=== PATIENT | female | born 1990 | race African-American/Black ===

== ENCOUNTER 2017-03-30 10:14 | Emergency (ER) | payer OTHER ==
[2017-03-30 10:23] VITALS: TEMP 98.3
[2017-03-30] MEDS ORDERED: PANTOPRAZOLE 40 MG/10 ML VIAL IVP STA (10:41)
[2017-03-30] MEDS ORDERED: SODIUM CHLORIDE 0.9% 1,000 ML IV STA (10:41)
[2017-03-30] MEDS ORDERED: SODIUM CHLORIDE 0.9% 500 ML IV STA (10:41)
[2017-03-30] MEDS ORDERED: ONDANSETRON 4 MG/2 ML VIAL IVP STA (10:41)
[2017-03-30] MEDS ORDERED: LORazepam 2 MG/ML INJ IV STA (10:42)
--- NOTE | 2017-03-30 10:43 | ED ---
General Adult HPI - General Chief complaint: Syncope Stated complaint: Fall Time Seen by Provider: 03/30/17 10:34 Source: RN/, RN notes reviewed, old records reviewed Mode of arrival: wheelchair Limitations: altered mental status - History of Present Illness Initial comments: This is a 26-year-old female to the ER for evaluation today. Patient presents with her mother today for evaluation after a syncopal event. Patient has no medical history takes no medications. Patient states he feels very weak, lightheaded. Patient does admit to drinking last night, more than usual. No nausea vomiting. Patient states she neck keep anything down today. No recent episodes of illness no diarrhea no chest pain or shortness of breath no abdominal pain. No headaches. Patient was visiting a friend and OB and while in the room passed out. Witnessed event, no change of color. - Related Data Home Medications Medication Instructions Recorded Confirmed [id number] 2 tab PO Q4HR PRN 03/30/17 03/30/17 [Excedrin] Allergies Allergy/AdvReac Type Severity Reaction Status Date / Time No Known Allergies Allergy Verified 03/28/15 07:50 Review of Systems ROS Statement: Those systems with pertinent positive or pertinent negative responses have been documented in the HPI. ROS Other: All systems not noted in ROS Statement are negative. Past Medical History Past Medical History: No Reported History Additional Past Medical History / Comment(s): Pericarditis; Kidney Stones History of Any Multi-Drug Resistant Organisms: None Reported Past Surgical History: No Surgical Hx Reported Past Psychological History: Anxiety, Depression Smoking Status: Current every day smoker Past Alcohol Use History: Occasional Past Drug Use History: None Reported General Exam Limitations: altered mental status General appearance: alert, in no apparent distress Head exam: Present: atraumatic, normocephalic, normal inspection Eye exam: Present: normal appearance, PERRL, EOMI. Absent: scleral icterus, conjunctival injection, periorbital swelling ENT exam: Present: normal exam, mucous membranes moist Neck exam: Present: normal inspection. Absent: tenderness, meningismus, lymphadenopathy Respiratory exam: Present: normal lung sounds bilaterally. Absent: respiratory distress, wheezes, rales, rhonchi, stridor Cardiovascular Exam: Present: regular rate, normal rhythm, normal heart sounds. Absent: systolic murmur, diastolic murmur, rubs, gallop, clicks GI/Abdominal exam: Present: soft, normal bowel sounds. Absent: distended, tenderness, guarding, rebound, rigid Extremities exam: Present: normal inspection, full ROM, normal capillary refill. Absent: tenderness, pedal edema, joint swelling, calf tenderness Back exam: Present: normal inspection Neurological exam: Present: alert, oriented X3, CN II-XII intact Psychiatric exam: Present: normal affect, normal mood Skin exam: Present: warm, dry, intact, normal color. Absent: rash Course Vital Signs 03/30/17 10:20 Temperature 98.3 F Pulse Rate 92 Respiratory 18 Rate Blood Pressure 112/68 O2 Sat by Pulse 99 Oximetry - Reevaluation(s) Reevaluation #1: 03/30/17 11:07 Patient is feeling much better with IV fluid resuscitation Medical Decision Making - Medical Decision Making 26 female to the ER with vasovagal syncopal event, secondary dehydration and alcohol intoxication from the night before. Patient's labwork is normal. Patient is doing better patient can be discharged home Disposition Clinical Impression: Vasovagal syncope, Dehydration, Alcohol withdrawal Disposition: HOME SELF-CARE Condition: Good Instructions: Syncope (ED) Referrals: Karson Brown MD [Primary Care Provider] - 1-2 days
[2017-03-30 11:13] LABS: Basophils % (A) 0 %; CH 30.3; CHCM 31.7; Eosinophils # (A) 0.2 k/uL (0-0.7); Eosinophils % (A) 1 %; HCT 41.5 % (34.0-46.0); HDW 2.09; HGB 13.1 gm/dL (11.4-16.0); Luc # (Auto) 0.11; Luc % (Auto) 1; Lymphocytes # (A) 2.1 k/uL (1.0-4.8); Lymphocytes % (A) 16 %; MCH 30.2 pg (25.0-35.0); MCHC 31.5 g/dL (31.0-37.0); MCV 95.9 fL (80.0-100.0); Mean Platelet Volume 8.2; Monocytes # (A) 0.5 k/uL (0-1.0); Monocytes % (A) 4 %; Neutrophils # (A) 10.1 k/uL (1.3-7.7); Neutrophils % (A) 78 %; RBC 4.33 m/uL (3.80-5.40); RDW 13.5 % (11.5-15.5); WBC 12.9 k/uL (3.8-10.6); WBC (Perox) 13.04
[2017-03-30 11:23] LABS: ALT 92 U/L (9-52); AST 46 U/L (14-36); Alkaline Phosphatase 59 U/L (38-126); Anion Gap 16 mmol/L; Blood Urea Nitrogen 11 mg/dL (7-17); Calcium 9.6 mg/dL (8.4-10.2); Carbon Dioxide 21 mmol/L (22-30); Chloride 108 mmol/L (98-107); Glucose 93 mg/dL (74-99); Magnesium 1.7 mg/dL (1.6-2.3); Non-African American GFR(MDRD) >60 (>60 ml/min/1.73 sqM); Phosphorous 4.3 mg/dL (2.5-4.5); Potassium 4.5 mmol/L (3.5-5.1); Sodium 145 mmol/L (137-145); Total Bilirubin 0.2 mg/dL (0.2-1.3)
[2017-03-30 11:24] LABS: Alcohol 85 mg/dL
[2017-03-30 11:32] LABS: HCG,Qualitative Serum Not Detected
[2017-03-30 12:16] VITALS: BP 119/89; PULSE 93; RESP 18
== END 2017-03-30 12:27 | disposition home or self-care (01) ==
LOC: EC 10:14
DX: E86.0 Dehydration (principal); F10.239 Alcohol dependence with withdrawal, unspecified; R41.82 Altered mental status, unspecified; F17.200 Nicotine dependence, unspecified, uncomplicated
CPT/HCPCS: 99284 ×2; 96374 ×2; 96375 ×3; 96361 ×2; 36415; 93005; 80053; 83735; 84100; 85025; 84703; 80320; J2060; J2405; C9113

== ENCOUNTER 2019-01-05 16:37 | Emergency (ER) | payer MEDICAID, OTHER ==
[2019-01-05 16:48] VITALS: TEMP 98.1
[2019-01-05] MEDS ORDERED: SODIUM CHLORIDE 0.9% 1,000 ML IV STA (17:30)
--- NOTE | 2019-01-05 17:30 | ED ---
General Adult HPI - General Chief complaint: Recheck/Abnormal Lab/Rx Stated complaint: Blured vision and seeing flashes Time Seen by Provider: 01/05/19 17:05 Source: patient, RN notes reviewed Mode of arrival: ambulatory Limitations: no limitations - History of Present Illness Initial comments: 28-year-old female presents to the emergency department for a chief complaint of visual changes. Patient states she was at work and suddenly she started to have flashing vision that lasted for several minutes and then her vision was blurry. States that she then developed a headache. States her vision is back to normal at this time but she does still have a headache. Denies any neck pain. Denies any fevers or chills. Patient denies any chest pain or shortness of breath. Denies any lightheadedness.Patient has no other complaints at this time includ ing shortness of breath, chest pain, abdominal pain, nausea or vomiting,. - Related Data Home Medications Medication Instructions Recorded Confirmed [id number] 2 tab PO Q4HR PRN 03/30/17 03/30/17 [Excedrin] Allergies Allergy/AdvReac Type Severity Reaction Status Date / Time No Known Allergies Allergy Verified 01/05/19 16:48 Review of Systems ROS Statement: Those systems with pertinent positive or pertinent negative responses have been documented in the HPI. ROS Other: All systems not noted in ROS Statement are negative. Past Medical History Past Medical History: No Reported History Additional Past Medical History / Comment(s): Pericarditis; Kidney Stones History of Any Multi-Drug Resistant Organisms: None Reported Past Surgical History: No Surgical Hx Reported Past Psychological History: Anxiety, Depression Smoking Status: Current every day smoker Past Alcohol Use History: Occasional Past Drug Use History: None Reported General Exam Limitations: no limitations General appearance: alert, in no apparent distress Head exam: Present: atraumatic, normocephalic, normal inspection Eye exam: Present: normal appearance, PERRL, EOMI. Absent: scleral icterus, conjunctival injection, periorbital swelling ENT exam: Present: normal exam, normal oropharynx, mucous membranes moist, TM's normal bilaterally, normal external ear exam Neck exam: Present: normal inspection, full ROM. Absent: tenderness, meningismus, lymphadenopathy Respiratory exam: Present: normal lung sounds bilaterally. Absent: respiratory distress, wheezes, rales, rhonchi, stridor Cardiovascular Exam: Present: regular rate, normal rhythm, normal heart sounds. Absent: systolic murmur, diastolic murmur, rubs, gallop, clicks GI/Abdominal exam: Present: soft, normal bowel sounds. Absent: distended, tenderness, guarding, rebound, rigid Neurological exam: Present: alert, oriented X3, CN II-XII intact, normal gait, other (GCS 15) Expanded Patient oriented to: Present: person, place, time Speech: Present: fluid speech Cranial nerves: EOM's Intact: Normal, Tongue Deviation: Normal, Nystagmus: Normal, Facial Sensation: Normal Cerebellar function: Finger to Nose: Normal Upper motor neuron: Pronator Drift: Normal Sensory exam: Upper Extremity Light Touch: Normal, Upper Extremity Pin Prick: Normal, Lower Extremity Light Touch: Normal, Lower Extremity Pin Prick: Normal Motor strength exam: RUE: 5, LUE: 5, RLE: 5, LLE: 5 Eye Response: (4) open spontaneously Motor Response: (6) obeys commands Verbal Response: (5) oriented Reggie Total: 15 Psychiatric exam: Present: normal affect, normal mood Course Vital Signs 01/05/19 16:45 Temperature 98.1 F Pulse Rate 88 Respiratory 18 Rate Blood Pressure 140/93 O2 Sat by Pulse 100 Oximetry Medical Decision Making - Medical Decision Making 28-year-old female with a past medical history of pericarditis, kidney stones presents to the emergency department for a chief complaint of visual changes. Patient states she was at work when suddenly she started to have flashing vision followed by blurry vision. Patient states this subsided but then she got a headache. She states this all happened less than 2 hours ago. Patient denies any neck pain. Denies any fevers or chills. On exam there are no focal neurologic deficits. Patient is ambulatory without difficulty. Patient denying any visual changes at this time. CBC and CMP are unremarkable. Urine is positive for blood however patient is currently on her period. CT brain shows no acute intracranial hemorrhage, mass effect, or midline shift. Patient reevaluated and given Toradol. Still stating she has a mild headache but vision is still completely normal. Patient likely had a headache with aura. Patient will be discharged home to follow up with primary care. She will return here if she has any worsening symptoms which were discussed with her. - Lab Data Result diagrams: 01/05/19 18:02 01/05/19 18:02 Lab Results 01/05/19 01/05/19 01/05/19 Range/Units 18:02 18:02 18:02 WBC 8.4 (3.8-10.6) k/uL RBC 4.07 (3.80-5.40) m/uL Hgb 12.5 (11.4-16.0) gm/dL Hct 38.4 (34.0-46.0) % MCV 94.2 (80.0-100.0) fL MCH 30.7 (25.0-35.0) pg MCHC 32.6 (31.0-37.0) g/dL RDW 14.8 (11.5-15.5) % Plt Count 209 (150-450) k/uL Neutrophils % 70 % Lymphocytes % 22 % Monocytes % 5 % Eosinophils % 1 % Basophils % 0 % Neutrophils # 5.9 (1.3-7.7) k/uL Lymphocytes # 1.8 (1.0-4.8) k/uL Monocytes # 0.4 (0-1.0) k/uL Eosinophils # 0.1 (0-0.7) k/uL Basophils # 0.0 (0-0.2) k/uL Sodium 138 (137-145) mmol/L Potassium 4.6 (3.5-5.1) mmol/L Chloride 105 (98-107) mmol/L Carbon Dioxide 27 (22-30) mmol/L Anion Gap 6 mmol/L BUN 14 (7-17) mg/dL Creatinine 0.69 (0.52-1.04) mg/dL Est GFR (CKD-EPI)AfAm >90 (>60 ml/min/1.73 sqM) Est GFR (CKD-EPI)NonAf >90 (>60 ml/min/1.73 sqM) Glucose 88 (74-99) mg/dL Calcium 9.5 (8.4-10.2) mg/dL Total Bilirubin 0.3 (0.2-1.3) mg/dL AST 24 (14-36) U/L ALT 29 (9-52) U/L Alkaline Phosphatase 43 (38-126) U/L Total Protein 7.4 (6.3-8.2) g/dL Albumin 4.3 (3.5-5.0) g/dL Urine Color Urine Appearance (Clear) Urine pH (5.0-8.0) Ur Specific Schuyler (1.001-1.035) Urine Protein (Negative) Urine Glucose (UA) (Negative) Urine Ketones (Negative) Urine Blood (Negative) Urine Nitrite (Negative) Urine Bilirubin (Negative) Urine Urobilinogen (<2.0) mg/dL Ur Leukocyte Esterase (Negative) Urine RBC (0-5) /hpf Urine WBC (0-5) /hpf Ur Squamous Epith Cells (0-4) /hpf Amorphous Sediment (None) /hpf Urine Bacteria (None) /hpf Urine HCG, Qual Not Detected (Not Detectd) 01/05/19 Range/Units 18:02 WBC (3.8-10.6) k/uL RBC (3.80-5.40) m/uL Hgb (11.4-16.0) gm/dL Hct (34.0-46.0) % MCV (80.0-100.0) fL MCH (25.0-35.0) pg MCHC (31.0-37.0) g/dL RDW (11.5-15.5) % Plt Count (150-450) k/uL Neutrophils % % Lymphocytes % % Monocytes % % Eosinophils % % Basophils % % Neutrophils # (1.3-7.7) k/uL Lymphocytes # (1.0-4.8) k/uL Monocytes # (0-1.0) k/uL Eosinophils # (0-0.7) k/uL Basophils # (0-0.2) k/uL Sodium (137-145) mmol/L Potassium (3.5-5.1) mmol/L Chloride (98-107) mmol/L Carbon Dioxide (22-30) mmol/L Anion Gap mmol/L BUN (7-17) mg/dL Creatinine (0.52-1.04) mg/dL Est GFR (CKD-EPI)AfAm (>60 ml/min/1.73 sqM) Est GFR (CKD-EPI)NonAf (>60 ml/min/1.73 sqM) Glucose (74-99) mg/dL Calcium (8.4-10.2) mg/dL Total Bilirubin (0.2-1.3) mg/dL AST (14-36) U/L ALT (9-52) U/L Alkaline Phosphatase (38-126) U/L Total Protein (6.3-8.2) g/dL Albumin (3.5-5.0) g/dL Urine Color Light Yellow Urine Appearance Clear (Clear) Urine pH 5.0 (5.0-8.0) Ur Specific Schuyler 1.005 (1.001-1.035) Urine Protein Negative (Negative) Urine Glucose (UA) Negative (Negative) Urine Ketones Negative (Negative) Urine Blood Large H (Negative) Urine Nitrite Negative (Negative) Urine Bilirubin Negative (Negative) Urine Urobilinogen <2.0 (<2.0) mg/dL Ur Leukocyte Esterase Negative (Negative) Urine RBC 2 (0-5) /hpf Urine WBC 4 (0-5) /hpf Ur Squamous Epith Cells 10 H (0-4) /hpf Amorphous Sediment Rare H (None) /hpf Urine Bacteria Rare H (None) /hpf Urine HCG, Qual (Not Detectd) Disposition Clinical Impression: Headache Disposition: HOME SELF-CARE Condition: Good Instructions (If sedation given, give patient instructions): General Headache (ED) Additional Instructions: Please follow up with primary care in 1-2 days. Please return to the emergency department if you have any worsening symptoms. Is patient prescribed a controlled substance at d/c from ED?: No Referrals: Brenda Estrada MD [STAFF PHYSICIAN] - 1-2 days Time of Disposition: 19:25
[2019-01-05 18:19] LABS: Basophils % (A) 0 %; Eosinophils # (A) 0.1 k/uL (0-0.7); Eosinophils % (A) 1 %; HCT 38.4 % (34.0-46.0); HGB 12.5 gm/dL (11.4-16.0); Lymphocytes # (A) 1.8 k/uL (1.0-4.8); Lymphocytes % (A) 22 %; MCH 30.7 pg (25.0-35.0); MCHC 32.6 g/dL (31.0-37.0); MCV 94.2 fL (80.0-100.0); Mean Platelet Volume 9.4; Monocytes # (A) 0.4 k/uL (0-1.0); Monocytes % (A) 5 %; Neutrophils # (A) 5.9 k/uL (1.3-7.7); Neutrophils % (A) 70 %; Platelet Count 209 k/uL (150-450); RBC 4.07 m/uL (3.80-5.40); RDW 14.8 % (11.5-15.5); WBC 8.4 k/uL (3.8-10.6)
[2019-01-05 18:27] LABS: Amorphous Sediment,Urine Rare /hpf; Appearance,Urine Clear (Clear); Bacteria,Urine Rare /hpf; Bilirubin,Urine Negative (Negative); Blood,Urine Large (Negative); Color,Urine Light Yellow; Glucose,Urine (UA) Negative (Negative); Ketones,Urine Negative (Negative); Leukocyte Esterase,Urine Negative (Negative); Nitrite,Urine Negative (Negative); Protein,Urine Negative (Negative); RBC,Urine 2 /hpf (0-5); Specific Gravity,Urine 1.005 (1.001-1.035); Squamous Epithelial Cell,Urine 10 /hpf (0-4); Urobilinogen,Urine <2.0 mg/dL (<2.0); WBC,Urine 4 /hpf (0-5)
[2019-01-05 18:40] LABS: ALT 29 U/L (9-52); AST 24 U/L (14-36); African American GFR (CKD) >90 (>60 ml/min/1.73 sqM); Albumin 4.3 g/dL (3.5-5.0); Alkaline Phosphatase 43 U/L (38-126); Anion Gap 6 mmol/L; Blood Urea Nitrogen 14 mg/dL (7-17); Calcium 9.5 mg/dL (8.4-10.2); Carbon Dioxide 27 mmol/L (22-30); Chloride 105 mmol/L (98-107); Glucose 88 mg/dL (74-99); Potassium 4.6 mmol/L (3.5-5.1); Sodium 138 mmol/L (137-145); Total Bilirubin 0.3 mg/dL (0.2-1.3); Total Protein 7.4 g/dL (6.3-8.2)
--- NOTE | 2019-01-05 18:59 | CT ---
EXAMINATION TYPE: CT brain wo con DATE OF EXAM: 01/05/2019 COMPARISON: HISTORY: Pt had sharp light in both eyes, and vision changes, nausea, headache CT DLP: 1111.4 mGycm. Automated Exposure Control for Dose Reduction was Utilized. TECHNIQUE: CT scan of the head is performed without contrast. FINDINGS: There is no acute intracranial hemorrhage, mass effect, or midline shift identified. The ventricles and sulci are within normal limits in size. The globes are intact and the visualized sin uses are remarkable for minimal inflammatory change in the ethmoid air cells.. Cerumen present within the external auditory canals. IMPRESSION: No acute intracranial hemorrhage, mass effect, or midline shift is seen.
[2019-01-05] MEDS ORDERED: KETOROLAC 30 MG/ML 1 ML VIAL IVP STA (19:08)
[2019-01-05 19:22] VITALS: BP 130/83; PULSE 82; RESP 20
== END 2019-01-05 19:33 | disposition home or self-care (01) ==
LOC: EC 16:37
DX: R51 Headache (principal); Z32.02 Encounter for pregnancy test, result negative; F17.200 Nicotine dependence, unspecified, uncomplicated
CPT/HCPCS: 36415; 80053; 85025; 81001; 81025; 70450; 99284; 96374; 96361; J1885

== ENCOUNTER 2019-12-26 12:35 | Emergency (ER) | payer MEDICAID ==
[2019-12-26 13:51] VITALS: RESP 18
--- NOTE | 2019-12-26 14:02 | ED ---
Abdominal Pain HPI - General Chief Complaint: Abdominal Pain Stated Complaint: 6 weeks -spotting Time Seen by Provider: 12/26/19 12:54 Source: patient Mode of arrival: ambulatory Limitations: no limitations - History of Present Illness Initial Comments: Patient is a 28-year-old female presenting to the emergency Department with complaints of vaginal spotting as well as lower abdominal cramping 2 days. Patient recently found out she was . She states she has been having spotting over the past 2 weeks which seems to be increasing over the past 2 days. She is also been having lower abdominal cramping over the last 2 days. She is . She does not follow with an IN[facility]ICE C[facility] yet. She denies any fever, chills. She does admit to some mild nausea, no vomiting or diarrhea. She is on no medications at this time. She has no further complaints at this time. Upon arrival to the ER, her vital signs are stable. - Related Data Home Medications Medication Instructions Recorded Confirmed Acetaminophen Tab [Tylenol Tab] 1,000 mg PO Q6H PRN 12/26/19 12/26/19 Ibuprofen [Motrin Ib] 400 mg PO Q6H PRN 12/26/19 12/26/19 Allergies Allergy/AdvReac Type Severity Reaction Status Date / Time No Known Allergies Allergy Verified 12/26/19 15:27 Review of Systems ROS Statement: Those systems with pertinent positive or pertinent negative responses have been documented in the HPI. ROS Other: All systems not noted in ROS Statement are negative. Past Medical History Past Medical History: No Reported History Additional Past Medical History / Comment(s): Pericarditis; Kidney Stones History of Any Multi-Drug Resistant Organisms: None Reported Past Surgical History: No Surgical Hx Reported Past Psychological History: Anxiety, Depression Smoking Status: Former smoker Past Alcohol Use History: Occasional Past Drug Use History: None Reported General Exam - General Exam Comments Initial Comments: GENERAL: Well-appearing, well-nourished and in no acute distress. HEAD: Atraumatic, normocephalic. EYES: Pupils equal round and reactive to light, extraocular movements intact, sclera anicteric, conjunctiva are normal. ENT: TMs normal, nares patent, oropharynx clear without exudates. Moist mucous membranes. NECK: Normal range of motion, supple without lymphadenopathy or JVD. LUNGS: Breath sounds clear to auscultation bilaterally and equal. No wheezes rales or rhonchi. HEART: Regular rate and rhythm without murmurs, rubs or gallops. ABDOMEN: Soft, nontender, normoactive bowel sounds. No guarding, no rebound. No masses appreciated. EXTREMITIES: Normal range of motion, no pitting or edema. No clubbing or cyanosis. NEUROLOGICAL: Cranial nerves II through XII grossly intact. Normal speech, normal gait. PSYCH: Normal mood, normal affect. SKIN: Warm, Dry, normal turgor, no rashes or lesions noted. Limitations: no limitations External exam: Present: normal external exam Speculum exam: Present: vaginal bleeding. Absent: vaginal discharge, foreign body By manual exam: Present: normal by manual exam Course Vital Signs 12/26/19 12/26/19 12:40 13:51 Temperature 98.7 F Pulse Rate 97 82 Respiratory 20 18 Rate Blood Pressure 144/93 126/84 O2 Sat by Pulse 99 98 Oximetry Medical Decision Making - Medical Decision Making Patient is a 28-year-old female here for vaginal spotting 2 weeks as well as abdominal cramping 2 days. She recently found out she was . . She does not follow with an INVOICE C[facility]ER. Exam revealed a mild amount of blood in the vaginal vault, no other abnormal findings. Lab shows no acute findings, hCG David is 7500. Urine shows no signs of infection. Ultrasound shows intrauterine gestational sac with a yolk sac present. pole was not yet identified, too early to date. Uterine fibroid is also present. Blood type to return as be negative. Patient was administered Rhogam. I did discuss these findings with the patient. I stated that her bleeding could be from implantation versus threatened miscarriage. I recommended following up with IN[facility]ICE C[facility]ER in the next few weeks. Beta repeat in 48 hours. Patient is stable for discharge. She is in agreement with this plan of care. Return parameters were discussed with the patient she verbalized understanding. Case discussed with Dr. Fortune. - Lab Data Result diagrams: 12/26/19 13:58 12/26/19 13:58 Lab Results 12/26/19 12/26/19 12/26/19 Range/Units 13:54 13:58 13:58 WBC 7.8 (3.8-10.6) k/uL RBC 4.13 (3.80-5.40) m/uL Hgb 12.6 (11.4-16.0) gm/dL Hct 39.0 (34.0-46.0) % MCV 94.5 (80.0-100.0) fL MCH 30.6 (25.0-35.0) pg MCHC 32.4 (31.0-37.0) g/dL RDW 13.2 (11.5-15.5) % Plt Count 231 (150-450) k/uL Neutrophils % 70 % Lymphocytes % 20 % Monocytes % 6 % Eosinophils % 1 % Basophils % 0 % Neutrophils # 5.5 (1.3-7.7) k/uL Lymphocytes # 1.6 (1.0-4.8) k/uL Monocytes # 0.5 (0-1.0) k/uL Eosinophils # 0.1 (0-0.7) k/uL Basophils # 0.0 (0-0.2) k/uL Sodium 135 L (137-145) mmol/L Potassium 5.0 (3.5-5.1) mmol/L Chloride 104 (98-107) mmol/L Carbon Dioxide 24 (22-30) mmol/L Anion Gap 7 mmol/L BUN 11 (7-17) mg/dL Creatinine 0.63 (0.52-1.04) mg/dL Est GFR (CKD-EPI)AfAm >90 (>60 ml/min/1.73 sqM) Est GFR (CKD-EPI)NonAf >90 (>60 ml/min/1.73 sqM) Glucose 87 (74-99) mg/dL Calcium 9.4 (8.4-10.2) mg/dL Total Bilirubin 0.3 (0.2-1.3) mg/dL AST 23 (14-36) U/L ALT 22 (4-34) U/L Alkaline Phosphatase 38 (38-126) U/L Total Protein 7.0 (6.3-8.2) g/dL Albumin 4.3 (3.5-5.0) g/dL HCG, Quant 7511.1 mIU/mL Urine Color Yellow Urine Appearance Cloudy H (Clear) Urine pH 5.5 (5.0-8.0) Ur Specific Kirklin 1.018 (1.001-1.035) Urine Protein Trace H (Negative) Urine Glucose (UA) Negative (Negative) Urine Ketones Negative (Negative) Urine Blood Moderate H (Negative) Urine Nitrite Negative (Negative) Urine Bilirubin Negative (Negative) Urine Urobilinogen <2.0 (<2.0) mg/dL Ur Leukocyte Esterase Negative (Negative) Urine RBC 1 (0-5) /hpf Urine WBC 2 (0-5) /hpf Ur Squamous Epith Cells 4 (0-4) /hpf Urine Bacteria Rare H (None) /hpf Urine Mucus Rare H (None) /hpf Blood Type Blood Type Confirm Blood Type Recheck Bld Type Recheck Status Antibody Screen 12/26/19 12/26/19 Range/Units 13:58 15:41 WBC (3.8-10.6) k/uL RBC (3.80-5.40) m/uL Hgb (11.4-16.0) gm/dL Hct (34.0-46.0) % MCV (80.0-100.0) fL MCH (25.0-35.0) pg MCHC (31.0-37.0) g/dL RDW (11.5-15.5) % Plt Count (150-450) k/uL Neutrophils % % Lymphocytes % % Monocytes % % Eosinophils % % Basophils % % Neutrophils # (1.3-7.7) k/uL Lymphocytes # (1.0-4.8) k/uL Monocytes # (0-1.0) k/uL Eosinophils # (0-0.7) k/uL Basophils # (0-0.2) k/uL Sodium (137-145) mmol/L Potassium (3.5-5.1) mmol/L Chloride (98-107) mmol/L Carbon Dioxide (22-30) mmol/L Anion Gap mmol/L BUN (7-17) mg/dL Creatinine (0.52-1.04) mg/dL Est GFR (CKD-EPI)AfAm (>60 ml/min/1.73 sqM) Est GFR (CKD-EPI)NonAf (>60 ml/min/1.73 sqM) Glucose (74-99) mg/dL Calcium (8.4-10.2) mg/dL Total Bilirubin (0.2-1.3) mg/dL AST (14-36) U/L ALT (4-34) U/L Alkaline Phosphatase (38-126) U/L Total Protein (6.3-8.2) g/dL Albumin (3.5-5.0) g/dL HCG, Quant mIU/mL Urine Color Urine Appearance (Clear) Urine pH (5.0-8.0) Ur Specific Kirklin (1.001-1.035) Urine Protein (Negative) Urine Glucose (UA) (Negative) Urine Ketones (Negative) Urine Blood (Negative) Urine Nitrite (Negative) Urine Bilirubin (Negative) Urine Urobilinogen (<2.0) mg/dL Ur Leukocyte Esterase (Negative) Urine RBC (0-5) /hpf Urine WBC (0-5) /hpf Ur Squamous Epith Cells (0-4) /hpf Urine Bacteria (None) /hpf Urine Mucus (None) /hpf Blood Type B Negative Blood Type Confirm B Negative Blood Type Recheck No Previous Record Bld Type Recheck Status CABO Indicated Antibody Screen NEGATIVE Disposition Clinical Impression: Vaginal bleeding affecting early Disposition: HOME SELF-CARE Condition: Stable Instructions (If sedation given, give patient instructions): Threatened Miscarriage (ED) Additional Instructions: Please return to the Emergency Department if symptoms worsen or any other c oncerns. Have a Beta HCG levels repeated in 48 hours. Follow-up with [facility]. Is patient prescribed a controlled substance at d/c from ED?: No Referrals: None,Stated [Primary Care Provider] - 1-2 days Philip Butler MD [STAFF PHYSICIAN] - 1-2 days
[2019-12-26 14:13] LABS: Appearance,Urine Cloudy (Clear); Bacteria,Urine Rare /hpf; Bilirubin,Urine Negative (Negative); Blood,Urine Moderate (Negative); Color,Urine Yellow; Glucose,Urine (UA) Negative (Negative); Ketones,Urine Negative (Negative); Leukocyte Esterase,Urine Negative (Negative); Mucus,Urine Rare /hpf; Nitrite,Urine Negative (Negative); PH, Urine 5.5 (5.0-8.0); Protein,Urine Trace (Negative); RBC,Urine 1 /hpf (0-5); Specific Gravity,Urine 1.018 (1.001-1.035); Squamous Epithelial Cell,Urine 4 /hpf (0-4); Urobilinogen,Urine <2.0 mg/dL (<2.0); WBC,Urine 2 /hpf (0-5)
[2019-12-26 14:55] LABS: Basophils % (A) 0 %; Eosinophils # (A) 0.1 k/uL (0-0.7); Eosinophils % (A) 1 %; HGB 12.6 gm/dL (11.4-16.0); Lymphocytes # (A) 1.6 k/uL (1.0-4.8); Lymphocytes % (A) 20 %; MCH 30.6 pg (25.0-35.0); MCHC 32.4 g/dL (31.0-37.0); MCV 94.5 fL (80.0-100.0); Mean Platelet Volume 8.7; Monocytes # (A) 0.5 k/uL (0-1.0); Monocytes % (A) 6 %; Neutrophils # (A) 5.5 k/uL (1.3-7.7); Neutrophils % (A) 70 %; Platelet Count 231 k/uL (150-450); RBC 4.13 m/uL (3.80-5.40); RDW 13.2 % (11.5-15.5); WBC 7.8 k/uL (3.8-10.6)
--- NOTE | 2019-12-26 14:55 | US ---
EXAMINATION TYPE: Transabdominal DATE OF EXAM: 12/26/2019 2:40 PM COMPARISON: NONE CLINICAL HISTORY: bleeding, cramping. Spotting for 2 weeks, cramping EXAM PERFORMED: Transvaginal (TV) and Transabdominal (TA) EXAM MEASUREMENTS: GESTATIONAL AGE / DATING Physician Established: Not yet established Dates by LMP: (5 weeks/0 days) EDC: 08/27/20 Dates by First Scan: No previous this is first scan Dates by Current Scan for: too small to accurately measure MATERNAL ANATOMY Uterus: 9.6 x 4.8 x 5.4cm Right Ovary: 3.9 x 2.1 x 2.7cm Left Ovary: 3.1 x 2.3 x 2.0cm Post CDS / Adnexa: appears wnl Presence of free fluid: no Presence of corpus luteal cyst: yes, complex area right ovary = 2.7 x 2.0 x 1.9cm GESTATION / SURVEY MSD: 0.9cm too small to accurately measure Yolk Sac (normal less than 6mm): 0.2cm IUP: no evidence of pole at this time Date of LMP: 11/21/19 Beta HcG (if available): Not available at this time Probable gestational sac and yolk sac within uterus. Unable to visualize pole at this time. Co rpus luteum right ovary. Hypoechoic area posterior fundus of uterus = 2.2 x 1.4 x 2.2cm, possible fib roid. IMPRESSION: 1. Intrauterine gestational sac with yolk sac present. pole not identified, too early to date b y measurement. 2. Uterine fibroid.
[2019-12-26 15:18] LABS: ALT 22 U/L (4-34); AST 23 U/L (14-36); African American GFR (CKD) >90 (>60 ml/min/1.73 sqM); Albumin 4.3 g/dL (3.5-5.0); Alkaline Phosphatase 38 U/L (38-126); Anion Gap 7 mmol/L; Blood Urea Nitrogen 11 mg/dL (7-17); Calcium 9.4 mg/dL (8.4-10.2); Carbon Dioxide 24 mmol/L (22-30); Chloride 104 mmol/L (98-107); Glucose 87 mg/dL (74-99); Non-African American GFR(CKD) >90 (>60 ml/min/1.73 sqM); Sodium 135 mmol/L (137-145); Total Bilirubin 0.3 mg/dL (0.2-1.3)
[2019-12-26] MEDS ORDERED: ACETAMINOPHEN TAB 325 MG TAB PO STA (15:29)
[2019-12-26 15:35] LABS: HCG,Quantitative Serum 7511.1 mIU/mL
[2019-12-26] MEDS ORDERED: Rhogam IMMUNE GLOBULIN 1,500 UNIT/1 ML IM ONE (15:37)
[2019-12-26 16:42] VITALS: BP 117/60; PULSE 72; TEMP 98.4
== END 2019-12-26 16:51 | disposition home or self-care (01) ==
LOC: EC 12:35
DX: O20.9 Hemorrhage in early pregnancy, unspecified (principal); O34.10 Maternal care for benign tumor of corpus uteri, unspecified trimester; Z3A.00 Weeks of gestation of pregnancy not specified; Z87.891 Personal history of nicotine dependence
CPT/HCPCS: 36415; 86900; 86901; 80053; 85025; 86850; 81001; 84702; 76801; 76817; 99284; 96372; J2791

== ENCOUNTER → 2019-12-29 | Outpatient (CLI) | payer MEDICAID | END | disposition home or self-care (01) | LOC: LABWHC1 13:08 | PROVIDERS: ATTEND Specialist/Technologist Athletic Trainer | DX: O20.0 Threatened abortion (principal) | CPT/HCPCS: 36415; 84702 ==

== ENCOUNTER → 2020-01-12 | Outpatient (CLI) | payer MEDICAID ==
--- NOTE | 2020-01-12 10:26 | US ---
EXAMINATION TYPE: Transabdominal DATE OF EXAM: 01/12/2020 10:05 AM COMPARISON: Prior ultrasound December 26, 2019 CLINICAL HISTORY: Z36 f/u previous abnormal. F/U to previous EXAM PERFORMED: Transvaginal (TV) and Transabdominal (TA) EXAM MEASUREMENTS: GESTATIONAL AGE / DATING Physician Established: Not yet established ( Dates by LMP: (7 weeks/3 days) EDC: 08/27/2020 Dates by First Scan: Too early to see. Dates by Current Scan for: (7 weeks/2 days) EDC: 08/28/2020 MATERNAL ANATOMY Uterus: 9.1 x 6.1 x 8.2 Fibroid seen 1.4 x 1.6 x 1.9 cm Right Ovary: 3.3 x 1.9 x 2.5 Left Ovary: Obscured by bowel gas. Post CDS / Adnexa: wnl Presence of free fluid: no Presence of corpus luteal cyst: Yes right Presence of subchorionic bleed: no GESTATION / SURVEY CRL: 11.33 cm (7 weeks/2 days) Yolk Sac (normal less than 6mm): 2 mm Heart Rate: 132 bpm Rhythm: Normal IUP: Viable IUP Beta HcG (if available): Not available at this time Interval successful progression with now visualization of gestational sac, yolk sac, and pole. No free fluid in pelvic cul-de-sac. Small intramural fibroid noted. Right ovary is seen with peripher al hypervascular 1.7 cm lesion felt to reflect a corpus luteal cyst. No suspicious extra ovarian adne xal lesion. IMPRESSION: Interval successful progression. Single live intrauterine gestation now confirmed. Mean c rown-rump length 11.3 cm corresponding to 7 week 2 day old fetus.
== END ==
LOC: RADUSWWP 09:37
PROVIDERS: ATTEND Obstetrics & Gynecology
DX: Z36.89 Encounter for other specified antenatal screening (principal); Z3A.01 Less than 8 weeks gestation of pregnancy
CPT/HCPCS: 76801; 76817

== ENCOUNTER → 2020-01-23 | Outpatient (CLI) | payer MEDICAID ==
[2020-01-23 12:25] LABS: HCT 38.7 % (34.0-46.0); HGB 12.2 gm/dL (11.4-16.0); MCH 29.8 pg (25.0-35.0); MCHC 31.5 g/dL (31.0-37.0); MCV 94.5 fL (80.0-100.0); Mean Platelet Volume 9.2; Platelet Count 248 k/uL (150-450); RDW 12.9 % (11.5-15.5); WBC 11.7 k/uL (3.8-10.6)
[2020-01-23 20:09] LABS: African American GFR (CKD) 141.8 (60.0-200.0); Non-African American GFR(CKD) 122.3 (60.0-200.0)
[2020-01-23 20:39] LABS: Hepatitis B Surface Antigen Non-Reactive (Non-Reactive)
[2020-01-23 21:07] LABS: HIV 2 AB Non-Reactive (Non-Reactive); HIV AB P24 Non-Reactive (Non-Reactive); HIV P24 AG Non-Reactive (Non-Reactive)
== END | disposition home or self-care (01) ==
LOC: LABWHC1 10:53
PROVIDERS: ATTEND Obstetrics & Gynecology
DX: Z34.01 Encounter for supervision of normal first pregnancy, first trimester (principal)
CPT/HCPCS: 36415; 82565; 82947; 85027; 86762; 86780; 86850; 86870; 86880; 86900; 86901; 87340; 87390

== ENCOUNTER 2020-02-24 21:04 | Emergency (ER) | payer MEDICAID ==
[2020-02-24 21:10] VITALS: RESP 18; TEMP 98.7
--- NOTE | 2020-02-24 21:26 | ED ---
Chest Pain HPI - General Chief Complaint: Chest Pain Stated Complaint: Chest Pain, 14 Weeks Preg Time Seen by Provider: 02/24/20 21:26 Source: patient Mode of arrival: ambulatory Limitations: no limitations - History of Present Illness Initial Comments: Patient is a 29-year-old female, , 14 week with history of pericarditis presenting to emergency Department with a chief complaint of chest pain. Patient states her symptoms started about 3 days ago with intermittent episodes of midsternal chest discomfort and associated shortness of breath the last for several minutes. Patient states immediately after deposition feels like "she has been running a marathon". Patient states today her symptoms are happening almost throughout the whole day. States the pain is actually worse whenever he is sitting up or standing but feels better when she is laying down. States this does not feel like her pericarditis. Patient states it is more of discomfort in the midsternal chest region without any radiation. Denies any coughing, hemoptysis, night sweats fever or chills. Denies any nausea vomiting diarrhea. - Related Data Home Medications Medication Instructions Recorded Confirmed Acetaminophen Tab [Tylenol Tab] 1,000 mg PO Q6H PRN 12/26/19 12/26/19 Ibuprofen [Motrin Ib] 400 mg PO Q6H PRN 12/26/19 12/26/19 Allergies Allergy/AdvReac Type Severity Reaction Status Date / Time No Known Allergies Allergy Verified 02/24/20 21:10 Review of Systems ROS Statement: Those systems with pertinent positive or pertinent negative responses have been documented in the HPI. ROS Other: All systems not noted in ROS Statement are negative. Past Medical History Past Medical History: No Reported History Additional Past Medical History / Comment(s): Pericarditis; Kidney Stones History of Any Multi-Drug Resistant Organisms: None Reported Past Surgical History: No Surgical Hx Reported Past Psychological History: Anxiety, Depression Smoking Status: Former smoker Past Alcohol Use History: Occasional Past Drug Use History: None Reported General Exam Limitations: no limitations General appearance: alert, in no apparent distress, obese Head exam: Present: atraumatic, normocephalic, normal inspection Eye exam: Present: normal appearance, PERRL, EOMI Pupils: Present: normal accommodation ENT exam: Present: normal exam, normal oropharynx, mucous membranes moist, TM's normal bilaterally, normal external ear exam Neck exam: Present: normal inspection, full ROM. Absent: tenderness Respiratory exam: Present: normal lung sounds bilaterally, chest wall tenderness (Reproducible midsternal chest pain). Absent: respiratory distress, wheezes, rales, accessory muscle use Cardiovascular Exam: Present: regular rate, normal rhythm, normal heart sounds GI/Abdominal exam: Present: soft. Absent: distended, tenderness, guarding Extremities exam: Present: normal inspection, full ROM, normal capillary refill. Absent: tenderness Back exam: Present: normal inspection, full ROM. Absent: tenderness, CVA tenderness (R), CVA tenderness (L) Neurological exam: Present: alert, oriented X3 Psychiatric exam: Present: normal affect, normal mood Skin exam: Present: warm, dry, intact, normal color Course Vital Signs 02/24/20 02/24/20 21:06 22:20 Temperature 98.7 F Pulse Rate 78 90 Respiratory 18 18 Rate Blood Pressure 134/84 131/76 O2 Sat by Pulse 97 100 Oximetry Chest Pain [facility] - Differential Diagnosis ACS, Pericarditis, Chest Wall Syndrome - [facility] Patient is a 29-year-old female, 14 week , with history of pericarditis presenting to emergency Department with a chief complaint of chest pain. On physical examination patient has reproducible midsternal chest pain to palpation. Likely resembling costochondritis. Chest x-ray is unremarkable.CBC reveals leukocytosis but I suspect is secondary to her . ESR is also elevated at 34. CRP 8.6. EKG does not reveal changes that will suspect pericarditis. Her pain is actually better when she is laying flat versus sitting or standing position. Coags within normal limits. Initial troponin negative. I have low suspicion for pericarditis at this time. Even patient states this does not feel like her pericarditis. She was advised to follow-up with her OB. Return parameters were thoroughly discussed the patient was understanding and agreeable. Case was discussed with Dr. Kingsley. Disposition Clinical Impression: Atypical chest pain, Costochondritis Disposition: HOME SELF-CARE Condition: Stable Instructions (If sedation given, give patient instructions): Chest Pain (ED), Costochondritis (ED) Additional Instructions: Follow-up with your OB. Return to emergency department if symptoms worsen. Is patient prescribed a controlled substance at d/c from ED?: No Referrals: None,Stated [REFERRING] - 1-2 days Time of Disposition: 23:07
[2020-02-24 21:46] LABS: Basophils % (A) 0 %; Eosinophils # (A) 0.1 k/uL (0-0.7); Eosinophils % (A) 1 %; HCT 35.8 % (34.0-46.0); HGB 11.7 gm/dL (11.4-16.0); Lymphocytes # (A) 2.1 k/uL (1.0-4.8); Lymphocytes % (A) 13 %; MCH 29.9 pg (25.0-35.0); MCHC 32.7 g/dL (31.0-37.0); MCV 91.6 fL (80.0-100.0); Mean Platelet Volume 8.6; Monocytes # (A) 0.7 k/uL (0-1.0); Monocytes % (A) 4 %; Neutrophils # (A) 12.9 k/uL (1.3-7.7); Neutrophils % (A) 80 %; Platelet Count 212 k/uL (150-450); RBC 3.91 m/uL (3.80-5.40); RDW 12.7 % (11.5-15.5)
[2020-02-24 21:53] LABS: ALT 24 U/L (4-34); AST 26 U/L (14-36); African American GFR (CKD) >90 (>60 ml/min/1.73 sqM); Alkaline Phosphatase 46 U/L (38-126); Anion Gap 10 mmol/L; Blood Urea Nitrogen 15 mg/dL (7-17); C Reactive Protein 8.6 mg/L (<10.0); Calcium 9.7 mg/dL (8.4-10.2); Carbon Dioxide 20 mmol/L (22-30); Chloride 104 mmol/L (98-107); Glucose 86 mg/dL (74-99); Magnesium 1.8 mg/dL (1.6-2.3); Non-African American GFR(CKD) >90 (>60 ml/min/1.73 sqM); Potassium 4.4 mmol/L (3.5-5.1); Sodium 134 mmol/L (137-145); Total Bilirubin 0.1 mg/dL (0.2-1.3); Total Protein 7.1 g/dL (6.3-8.2)
--- NOTE | 2020-02-24 21:59 | XR ---
EXAMINATION TYPE: XR chest 2V DATE OF EXAM: 02/24/2020 COMPARISON: 09/13/2011 HISTORY: Chest pain TECHNIQUE: FINDINGS: Heart and mediastinum are normal. Lungs are clear. Diaphragm is normal. Bony thorax appears normal. IMPRESSION: Normal chest. No change.
[2020-02-24 22:05] LABS: INR 0.9 (<1.2); Partial Thromboplastin Time 23.4 sec (22.0-30.0); Prothrombin Time 9.3 sec (9.0-12.0)
[2020-02-24 22:34] VITALS: BP 131/76; PULSE 90
[2020-02-24 23:20] LABS: Erythrocyte Sedimentation Rate 34 mm/hr (0-20)
== END 2020-02-24 23:19 | disposition home or self-care (01) ==
LOC: EC 21:04
DX: O99.89 Other specified diseases and conditions complicating pregnancy, childbirth and the puerperium (principal); M94.0 Chondrocostal junction syndrome [Tietze]; R07.89 Other chest pain; Z87.891 Personal history of nicotine dependence; Z3A.14 14 weeks gestation of pregnancy
CPT/HCPCS: 36415; 71046; 80053; 83735; 84484; 85025; 85610; 85652; 85730; 86140; 93005; 99285

== ENCOUNTER → 2020-04-05 | Outpatient (CLI) | payer MEDICAID ==
--- NOTE | 2020-04-05 17:28 | US ---
EXAMINATION TYPE: US OB anatomy transabd DATE OF EXAM: 04/05/2020 COMPARISON: 01/12/2020 HISTORY: 29-year-old female O32.62X0 Large for dates Anatomy. TECHNIQUE: Transabdominal (TA) FINDINGS: EXAM MEASUREMENTS: GESTATIONAL AGE / DATING Physician Established: (19 weeks/3 days) EDC: 08/27/2020 Dates by Current Scan for: (20 weeks/0 days) (5 days more growth than expected as compared to 020) EDC: 08/23/2020 SURVEY IUP: Single PLACENTA: Posterior PREVIA: No previa ELIA: 16.8 cm, Normal CERVICAL LENGTH (transabdominal: norm > 3.0cm): 3.9 cm BIOMETRY LIE: Transverse lie with head maternal Left BPD: 4.7 cm 20 weeks / 1 days HC: 17.8 cm 20 weeks / 2 days AC: 15.7 cm 20 weeks / 6 days FL: 3.1 cm 19 weeks / 5 days ESTIMATED WEIGHT IN GRAMS: 345.3 grams ESTIMATED WEIGHT IN LBS/OZ: 0 lbs. 12 oz. WEIGHT PERCENTAGE BASED ON ESTABLISHED DATE: 90.2 % HC/AC: 1.1 Normal FL/AC: 20.0 HEART RATE: 154 bpm RHYTHM: Normal ANATOMY SEEN (within normal limits): Lateral Vent (< 1 cm) 0.5 cm Cisterna Magna (< 1.1 cm) 0.5 cm Cerebellum (varies with age) 2.0 cm Choroid Plexus (bilateral) Midline Falx Cavum Septum Pellucidim Four Chamber Heart Outflow tracts: LVOT/RVOT Stomach Situs Nose / Lips Diaphragm Kidneys (bilateral) Bladder Cord Insert Three Vessel Cord Longitudinal Spine Transverse Spine Arms (bilateral) Legs (bilateral) Feet (bilateral) Hands (bilateral) [employer] notes: Single live IUP measuring 20 weeks 0 days. Anterior hypoechoic uterine lesion vis ualized = 3.6 x 3.8 x 2.1 cm (measured 1.9 cm on 01/12/2020). IMPRESSION: 1. Single live intrauterine with estimated gestational age of 19 weeks 3 days by LMP. [facility] biometry is larger (20 weeks 0 days) with 5 days more growth than expected as compared to 01/12/2020. This places the gestation at the 90th percentile for weight. 2. The anatomy appears normal. 3. A 3.8 cm anterior fibroid increased in size from 01/12/2020 where it measured 1.9 cm.
== END | disposition home or self-care (01) ==
LOC: RADUSWWP 10:55
PROVIDERS: ATTEND Obstetrics & Gynecology
DX: O36.62X0 Maternal care for excessive fetal growth, second trimester, not applicable or unspecified (principal); Z3A.20 20 weeks gestation of pregnancy; D25.9 Leiomyoma of uterus, unspecified
CPT/HCPCS: 76811

== ENCOUNTER 2020-04-23 09:46 | Outpatient (CLI) | payer MEDICAID ==
[2020-04-23 10:55] LABS: Basophils % (A) 0 %; Eosinophils # (A) 0.1 k/uL (0-0.7); Eosinophils % (A) 1 %; HCT 33.9 % (34.0-46.0); HGB 11.1 gm/dL (11.4-16.0); Lymphocytes % (A) 18 %; MCH 30.1 pg (25.0-35.0); MCHC 32.9 g/dL (31.0-37.0); MCV 91.4 fL (80.0-100.0); Mean Platelet Volume 9.7; Monocytes # (A) 0.5 k/uL (0-1.0); Monocytes % (A) 5 %; Neutrophils # (A) 8.1 k/uL (1.3-7.7); Neutrophils % (A) 74 %; Platelet Count 220 k/uL (150-450); WBC 10.9 k/uL (3.8-10.6)
[2020-04-23 10:58] LABS: Appearance,Urine Cloudy (Clear); Bacteria,Urine Rare /hpf; Bilirubin,Urine Negative (Negative); Blood,Urine Negative (Negative); Color,Urine Yellow; Glucose,Urine (UA) Negative (Negative); Ketones,Urine Negative (Negative); Leukocyte Esterase,Urine Negative (Negative); Mucus,Urine Occasional /hpf; Nitrite,Urine Negative (Negative); PH, Urine 5.5 (5.0-8.0); Protein,Urine Trace (Negative); Specific Gravity,Urine 1.025 (1.001-1.035); Squamous Epithelial Cell,Urine 15 /hpf (0-4); Urobilinogen,Urine <2.0 mg/dL (<2.0); WBC,Urine 1 /hpf (0-5)
[2020-04-23 11:11] LABS: Protein/Creatinine Ratio,Urine 0.052
[2020-04-23 11:33] VITALS: BP 132/83; PULSE 93; RESP 18; TEMP 97.6
--- NOTE | 2020-05-03 13:03 | P.MSEPDOC ---
Presenting Problems - Arrival Data Date of Arrival on Unit: 04/23/20 Time of Arrival on Unit: 09:46 Mode of Transport: Ambulatory - Complaint OB-Reason for Admission/Chief Complaint: PIH, Observation/Evaluation Comment: Pt sent to triage c\script for PIH work up Medical History - Information : 1 Para: 0 - Gestational Age Gestational Age by CHELSEA (wks/days): 22 Weeks and 0 Days Review of Systems - Review of Systems Constitutional: No problems Breast: No problems ENT: No problems Cardiovascular: No problems Respiratory: No problems Gastrointestinal: No problems Genitourinary: No problems Musculoskeletal: No problems Neurological: No problems Skin: No problems Vital Signs - Temperature Temperature: 97.6 F Temperature Source: Temporal Artery Scan - Pulse Right Sitting Ulnar Pulse Rate: 93 Pulse Assessment Method: Automatic Cuff - Respirations Respiratory Rate: 18 Oxygen Delivery Method: Room Air O2 Sat by Pulse Oximetry: 100 - Blood Pressure Right Arm Sitting Blood Pressure: 132/83 Blood Pressure Mean: 99 Blood Pressure Source: Automatic Cuff Medical Screen Scoring (Pre) - Cervical Exam Dilation: Exam Deferred Effacement: Exam Deferred Membranes: Intact - Uterine Contractions Frequency: N/A - Maternal Vital Signs Maternal Temperature: N/A Maternal Blood Pressure: N/A Signs of Preeclampsia: N/A Maternal Respirations: N/A - Maternal Trauma Maternal Trauma: N/A - Assessment - Baby A Baseline FHR: 134 Position: N/A Station: N/A - Total Score - Baby A Total Score - Baby A: 0 - Total Score - Baby B Total Score - Baby B: 0 - Total Score - Baby C Total Score - Baby C: 0 - Level of Risk - Baby A Level of Risk - Baby A: Low (0-5) - Level of Risk - Baby B Level of Risk - Baby B: Low (0-5) - Level of Risk - Baby C Level of Risk - Baby C: Low (0-5) Physician Notification (Pre) - Physician Notified Physician Notified Date: 04/23/20 Physician Notified Time: 11:20 New Order Received: Yes - Notification Comment Comment: Spk c\Dr. Wong, reviewed serial BP and labs as well as continued headache. States to d/c home, follow up as scheduled, may take Tylenol and benadryl, avoid. sudafed. Disposition - Disposition OB Disposition: Discharge to home, Written follow up instructions reviewed Discharge Date: 04/23/20 Discharge Time: 11:30 I agree with the RN Medical Screening Exam: Yes Risk & Benefit of care provided described in d/c instruction: Yes Diagnosis: HEADACHE, UNSPECIFIED
== END 2020-04-23 11:30 | disposition home or self-care (01) ==
LOC: FBPOP 09:46
PROVIDERS: ATTEND Obstetrics & Gynecology
DX: O99.891 Other specified diseases and conditions complicating pregnancy (principal); R51.9 Headache, unspecified; Z3A.22 22 weeks gestation of pregnancy
CPT/HCPCS: 59025; 81001; 82570; 83615; 84156; 84450; 84460; 84520; 84550; 85025

== ENCOUNTER 2020-04-29 13:56 | Outpatient (CLI) | payer MEDICAID ==
[2020-04-29 15:16] VITALS: BP 112/65; PULSE 106; RESP 16; TEMP 97.6
--- NOTE | 2020-05-03 13:06 | P.MSEPDOC ---
Presenting Problems - Arrival Data Date of Arrival on Unit: 04/29/20 Time of Arrival on Unit: 13:56 Mode of Transport: Ambulatory - Complaint OB-Reason for Admission/Chief Complaint: Other Comment: chest pain Medical History - Information : 1 Para: 0 Term: 0 : 0 Abortions: Spontaneous or Elective: 0 Number of Living Children: 0 - Gestational Age Gestational Age by CHELSEA (wks/days): 22 Weeks and 6 Days Review of Systems - Review of Systems Constitutional: No problems Breast: No problems ENT: No problems Cardiovascular: Chest pain Respiratory: No problems Gastrointestinal: No problems Genitourinary: No problems Musculoskeletal: No problems Neurological: No problems Skin: No problems Vital Signs - Temperature Temperature: 97.6 F Temperature Source: Oral - Pulse Right Apical Pulse Rate: 106 Pulse Assessment Method: Automatic Cuff - Respirations Respiratory Rate: 16 Oxygen Delivery Method: Room Air - Blood Pressure Right Arm Blood Pressure: 112/65 Blood Pressure Mean: 80 Blood Pressure Source: Automatic Cuff Medical Screen Scoring (Pre) - Cervical Exam Dilation: Exam Deferred - Uterine Contractions Frequency: N/A Duration: N/A Intensity: N/A - Maternal Vital Signs Maternal Temperature: N/A Maternal Blood Pressure: N/A Signs of Preeclampsia: N/A Maternal Respirations: N/A - Maternal Trauma Maternal Trauma: N/A - Assessment - Baby A Baseline FHR: 150 - Total Score - Baby A Total Score - Baby A: 0 - Total Score - Baby B Total Score - Baby B: 0 - Total Score - Baby C Total Score - Baby C: 0 - Level of Risk - Baby A Level of Risk - Baby A: Low (0-5) - Level of Risk - Baby B Level of Risk - Baby B: Low (0-5) - Level of Risk - Baby C Level of Risk - Baby C: Low (0-5) Physician Notification (Pre) - Physician Notified Physician Notified Date: 04/29/20 Physician Notified Time: 14:40 New Order Received: Yes - Notification Comment Comment: reported pt visit, right upper chest pain, sharp shooting, with increased pain with deep breath. tingling in fingers.no shortness of breath or difficulty breathing. pulse ox 99-100, lungs clear. cap refill less than 3 seconds, bilateral surgical aides teacher strong and equal. Disposition - Disposition OB Disposition: Discharge to home Discharge Date: 04/29/20 Discharge Time: 14:54 I agree with the RN Medical Screening Exam: Yes Risk & Benefit of care provided described in d/c instruction: Yes Diagnosis: CHEST PAIN ON BREATHING
== END 2020-04-29 14:54 | disposition home or self-care (01) ==
LOC: FBPOP 13:56
PROVIDERS: ATTEND Obstetrics & Gynecology
DX: O99.891 Other specified diseases and conditions complicating pregnancy (principal); Z3A.22 22 weeks gestation of pregnancy
CPT/HCPCS: 99213

== ENCOUNTER 2020-05-03 13:32 | Emergency (ER) | payer MEDICAID ==
[2020-05-03 13:41] VITALS: TEMP 98
--- NOTE | 2020-05-03 14:13 | ED ---
General Adult HPI - General Chief complaint: Chest Pain Stated complaint: Chest Pain-23 Wks Time Seen by Provider: 05/03/20 13:35 Source: patient, RN notes reviewed, old records reviewed Mode of arrival: ambulatory Limitations: no limitations - History of Present Illness Initial comments: This is a 29-year-old female who is 23 weeks . Patient states she has no chest pain on the left side of her chest and is sharp in nature. Patient states this pain started about a week ago. Patient states is reproducible with palpation. Patient states occasionally when the chest pain occurs it takes her breath away but she has not at the moment short of breath. Patient denies any fever chills or cough. Patient denies any trauma though she states she does a lot of lifting at work. Patient denies any increased swelling to her legs or calf tenderness. Patient denies any abdominal pain. Patient denies any back pain. - Related Data Home Medications Medication Instructions Recorded Confirmed Pnv,Calcium 72/Iron/Folic Acid 1 tab PO DAILY 05/03/20 05/03/20 [ Plus Tablet] Allergies Allergy/AdvReac Type Severity Reaction Status Date / Time No Known Allergies Allergy Verified 05/03/20 13:38 Review of Systems ROS Statement: Those systems with pertinent positive or pertinent negative responses have been documented in the HPI. ROS Other: All systems not noted in ROS Statement are negative. Past Medical History Past Medical History: No Reported History Additional Past Medical History / Comment(s): Pericarditis; Kidney Stones, fibroid cysts History of Any Multi-Drug Resistant Organisms: None Reported Past Surgical History: No Surgical Hx Reported Past Psychological History: Anxiety, Depression Smoking Status: Never smoker Past Alcohol Use History: None Reported Past Drug Use History: None Reported General Exam - General Exam Comments Initial Comments: GENERAL: Patient is well-developed and well-nourished. Patient is nontoxic and well- hydrated and is in no acute distress. ENT: Neck is soft and supple. No significant lymphadenopathy is noted. Oropharynx is clear. Moist mucous membranes. Neck has full range of motion without eliciting any pain. EYES: The sclera were anicteric and conjunctiva were pink and moist. Extraocular movements were intact and pupils were equal round and reactive to light. Eyelids were unremarkable. PULMONARY: Unlabored respirations. Good breath sounds bilaterally. No audible rales rhonchi or wheezing was noted. CARDIOVASCULAR: There is a regular rate and rhythm without any murmurs gallops or rubs. Pain is reproducible on palpation just the left of the upper sternum. Patient stated that was the exact pain she experienced earlier. ABDOMEN: Soft and nontender with normal bowel sounds. SKIN: Skin is clear with no lesions or rashes and otherwise unremarkable. NEUROLOGIC: Patient is alert and oriented x3. Cranial nerves II through XII are grossly intact. Motor and sensory are also intact. Normal speech, volume and content. Symmetrical smile. MUSCULOSKELETAL: Normal extremities with adequate strength and full range of motion. No lower extremity swelling or edema. No calf tenderness. LYMPHATICS: No significant lymphadenopathy is noted PSYCHIATRIC: Normal psychiatric evaluation. Limitations: no limitations Course Vital Signs 05/03/20 05/03/20 13:38 14:29 Temperature 98 F Pulse Rate 105 H 125 H Respiratory 18 16 Rate Blood Pressure 123/83 O2 Sat by Pulse 99 100 Oximetry Medical Decision Making - Medical Decision Making EKG shows sinus tachycardia at 106 bpm OH interval is on a 24 QRS is 82 QT interval 334 QTC is 443. Patient's EKG shows small Q waves in the inferior leads which was seen there 2 months according an old EKG. There were also seen a couple years ago. I will back in the room to reevaluate the patient she was chest pain-free until I palpated her chest. - Lab Data Result diagrams: 05/03/20 14:26 05/03/20 14:26 Lab Results 05/03/20 05/03/20 05/03/20 Range/Units 14:26 14:26 14:26 WBC 14.0 H (3.8-10.6) k/uL RBC 4.23 (3.80-5.40) m/uL Hgb 12.2 (11.4-16.0) gm/dL Hct 38.4 (34.0-46.0) % MCV 90.8 (80.0-100.0) fL MCH 28.9 (25.0-35.0) pg MCHC 31.9 (31.0-37.0) g/dL RDW 13.3 (11.5-15.5) % Plt Count 263 (150-450) k/uL MPV 9.0 Neutrophils % 81 % Lymphocytes % 14 % Monocytes % 4 % Eosinophils % 0 % Basophils % 0 % Neutrophils # 11.3 H (1.3-7.7) k/uL Lymphocytes # 1.9 (1.0-4.8) k/uL Monocytes # 0.5 (0-1.0) k/uL Eosinophils # 0.1 (0-0.7) k/uL Basophils # 0.0 (0-0.2) k/uL D-Dimer 0.46 (<0.60) mg/L FEU Sodium 133 L (137-145) mmol/L Potassium 4.5 (3.5-5.1) mmol/L Chloride 105 (98-107) mmol/L Carbon Dioxide 21 L (22-30) mmol/L Anion Gap 7 mmol/L BUN 8 (7-17) mg/dL Creatinine 0.43 L (0.52-1.04) mg/dL Est GFR (CKD-EPI)AfAm >90 (>60 ml/min/1.73 sqM) Est GFR (CKD-EPI)NonAf >90 (>60 ml/min/1.73 sqM) Glucose 123 H (74-99) mg/dL Calcium 9.9 (8.4-10.2) mg/dL Total Bilirubin 0.2 (0.2-1.3) mg/dL AST 21 (14-36) U/L ALT 18 (4-34) U/L Alkaline Phosphatase 67 (38-126) U/L Total Protein 7.3 (6.3-8.2) g/dL Albumin 4.0 (3.5-5.0) g/dL Disposition Clinical Impression: Chest wall pain Disposition: [facility] Instructions (If sedation given, give patient instructions): Chest Wall Pain (ED) Is patient prescribed a controlled substance at d/c from ED?: No Referrals: Karson Brown MD [Primary Care Provider] - 1-2 days Time of Disposition: 15:15
[2020-05-03] MEDS ORDERED: ACETAMINOPHEN TAB 500 MG TAB PO STA (14:19)
[2020-05-03 14:38] LABS: Basophils % (A) 0 %; Eosinophils # (A) 0.1 k/uL (0-0.7); Eosinophils % (A) 0 %; HCT 38.4 % (34.0-46.0); HGB 12.2 gm/dL (11.4-16.0); Lymphocytes # (A) 1.9 k/uL (1.0-4.8); Lymphocytes % (A) 14 %; MCH 28.9 pg (25.0-35.0); MCHC 31.9 g/dL (31.0-37.0); MCV 90.8 fL (80.0-100.0); Monocytes # (A) 0.5 k/uL (0-1.0); Monocytes % (A) 4 %; Neutrophils # (A) 11.3 k/uL (1.3-7.7); Neutrophils % (A) 81 %; Platelet Count 263 k/uL (150-450); RBC 4.23 m/uL (3.80-5.40); RDW 13.3 % (11.5-15.5)
[2020-05-03 14:41] LABS: ALT 18 U/L (4-34); AST 21 U/L (14-36); African American GFR (CKD) >90 (>60 ml/min/1.73 sqM); Alkaline Phosphatase 67 U/L (38-126); Anion Gap 7 mmol/L; Blood Urea Nitrogen 8 mg/dL (7-17); Calcium 9.9 mg/dL (8.4-10.2); Carbon Dioxide 21 mmol/L (22-30); Chloride 105 mmol/L (98-107); Glucose 123 mg/dL (74-99); Non-African American GFR(CKD) >90 (>60 ml/min/1.73 sqM); Potassium 4.5 mmol/L (3.5-5.1); Sodium 133 mmol/L (137-145); Total Bilirubin 0.2 mg/dL (0.2-1.3); Total Protein 7.3 g/dL (6.3-8.2)
[2020-05-03 15:39] VITALS: BP 124/70; PULSE 99; RESP 12
== END 2020-05-03 15:39 ==
LOC: EC 13:32
DX: O99.891 Other specified diseases and conditions complicating pregnancy (principal); R07.89 Other chest pain; R00.0 Tachycardia, unspecified; Z3A.23 23 weeks gestation of pregnancy
CPT/HCPCS: 36415; 80053; 85025; 85379; 93005; 99285

== ENCOUNTER → 2020-06-09 | Outpatient (CLI) | payer MEDICAID ==
[2020-06-09 16:17] LABS: HCT 35.8 % (34.0-46.0); HGB 12.1 gm/dL (11.4-16.0); MCH 30.2 pg (25.0-35.0); MCHC 33.7 g/dL (31.0-37.0); MCV 89.4 fL (80.0-100.0); Mean Platelet Volume 9.4; Platelet Count 211 k/uL (150-450); RBC 4.01 m/uL (3.80-5.40); RDW 13.9 % (11.5-15.5)
== END | disposition home or self-care (01) ==
LOC: LABWHC1 14:29
PROVIDERS: ATTEND Obstetrics & Gynecology
DX: Z34.02 Encounter for supervision of normal first pregnancy, second trimester (principal)
CPT/HCPCS: 36415; 82950; 85027; 86850

== ENCOUNTER 2020-06-26 21:20 | Outpatient (CLI) | payer MEDICAID ==
[2020-06-26 22:07] LABS: Creatinine,Urine Random 68.7 mg/dL
[2020-06-26 22:40] LABS: Basophils % (A) 0 %; Eosinophils # (A) 0.2 k/uL (0-0.7); Eosinophils % (A) 2 %; HCT 34.8 % (34.0-46.0); HGB 11.8 gm/dL (11.4-16.0); Lymphocytes # (A) 1.6 k/uL (1.0-4.8); Lymphocytes % (A) 16 %; MCV 88.3 fL (80.0-100.0); Mean Platelet Volume 10.7; Monocytes # (A) 0.5 k/uL (0-1.0); Monocytes % (A) 5 %; Neutrophils # (A) 7.4 k/uL (1.3-7.7); Neutrophils % (A) 74 %; Platelet Count 186 k/uL (150-450); RBC 3.95 m/uL (3.80-5.40); RDW 14.3 % (11.5-15.5); WBC 9.9 k/uL (3.8-10.6)
[2020-06-26 22:53] LABS: ALT 18 U/L (4-34); AST 25 U/L (14-36); African American GFR (CKD) >90 (>60 ml/min/1.73 sqM); Blood Urea Nitrogen 10 mg/dL (7-17); LDH 387 U/L (313-618); Non-African American GFR(CKD) >90 (>60 ml/min/1.73 sqM); Uric Acid 3.9 mg/dL (3.7-7.4)
[2020-06-26 23:09] LABS: Glucose,Whole Blood 104 mg/dL (75-99)
[2020-06-26 23:51] LABS: Appearance,Urine Cloudy (Clear); Bilirubin,Urine Negative (Negative); Blood,Urine Negative (Negative); Color,Urine Light Yellow; Creatinine,Urine Random 69.1 mg/dL; Glucose,Urine (UA) 3+ (Negative); Leukocyte Esterase,Urine Trace (Negative); Mucus,Urine Rare /hpf; Nitrite,Urine Negative (Negative); Protein,Urine Negative (Negative); Protein/Creatinine Ratio,Urine 0.13; RBC,Urine <1 /hpf (0-5); Specific Gravity,Urine 1.021 (1.001-1.035); Squamous Epithelial Cell,Urine 9 /hpf (0-4); Urobilinogen,Urine <2.0 mg/dL (<2.0); WBC,Urine 4 /hpf (0-5)
[2020-06-26 23:55] LABS: Ketones,Urine 2+ (Negative)
--- NOTE | 2020-06-27 00:13 | P.PN ---
Progress Note - Text Progress Note Date: 06/27/20 Patient is a 29-year-old at 31 weeks gestation who arrives complaining of lower pelvic pain. While in labor and delivery multiple elevated blood pressures were noted. Preeclamptic labs were drawn and all were normal. Platelets were 186 is TLT were normal LDH was normal and her protein creatinine ratio was 0.19. With her resting comfortably her blood pressures have come down into the normal range 130s over 70s and 80s. She has no other signs or symptoms of preeclampsia including but not limited to no headache, epigastric pain or visual changes. Her deep tendon reflexes are +2. She is also a newly diagnosed gestational diabetic. She is currently a 1 and has been checking her blood sugars for approximately 1 week. A hemoglobin A1c was also drawn by maternal- medicine whom she saw last week but no result is back. We did do a random blood sugar with her work tonight and was 1053 hours after her meal. She seems to be following the plan correctly at this time but she is uncertain as to the Gold numbers for her blood sugars and I did review this with her in detail. Since having her here in labor and delivery and having her resting her pain has significantly decreased. It was located in the midline lower uterine area basically where the head of is an I'm believe it is probably movement that was causing the pain or ligament stretching as the symptoms are getting better with no therapy at all. Her urine had +2 ketones and +3 glucose but no red blood cells or any other signs of an infection. Her white count was also normal. She also complains of a rash bilateral inner thighs which is noted it is slightly raised and red and it is pruritic. She denies any home her were solar itching and no other complaints. A prescription for a steroid cream was provided and that she can fill tomorrow. She has an appointment with Dr. Wong on Sunday. She had discussed staying in the hospital for continued observation but with her blood pressures stabilizing and her pain improving I don't really have a recent have to keep her at this time. She is aware to return if any of the signs or symptoms of preeclampsia arise or if there are other problems or concerns. She is going to speak with maternal medicine the next few days for her review of her Glucola testing. All the questions were answered for her at this time. On physical exam vital signs are currently stable with reviewed blood pressures that were minimally elevated 150s over 70s 140s over 80s and 90s. These have improved with rest. Her pain has also dissipated so that also may be contributing to her lower blood pressures. Heart regular lungs clear abdomen soft there is no tenderness anywhere on or around her abdomen I did press relatively firmly over the year she was complaining about pain I did not palpate anything and she did not show any sign of pain at this time. Extremities have minimal edema that is nonpitting and again deep tendon reflexes are normal. Assessment [facility] plan intrauterine 31 weeks with gestational diabetes and suspected gestational hypertension follow up with Dr. Wong on Sunday return with worsening of symptoms.
[2020-06-27 01:53] VITALS: BP 153/80; PULSE 105; RESP 16; TEMP 97
--- NOTE | 2020-06-27 10:02 | P.MSEPDOC ---
Presenting Problems - Arrival Data Date of Arrival on Unit: 06/26/20 Time of Arrival on Unit: 21:20 Mode of Transport: Wheelchair - Complaint OB-Reason for Admission/Chief Complaint: Pain Comment: Patient presents to triage with cramping that started around 1200pm this. afternoon, states the cramping is constant in nature, denies leaking of fluid or vaginal. bleeding. Patient states she has an ovarian cyst and states the pain sort of feels like. that, but she is unsure. Patient up to the bathroom at this time. Medical History - Information : 1 Para: 0 Term: 0 : 0 Abortions: Spontaneous or Elective: 0 Number of Living Children: 0 - Gestational Age Gestational Age by CHELSEA (wks/days): 31 Weeks and 2 Days - History Complications: GDM Review of Systems - Review of Systems Constitutional: No problems Breast: No problems ENT: No problems Cardiovascular: No problems Respiratory: No problems Gastrointestinal: No problems Genitourinary: No problems Musculoskeletal: No problems Neurological: No problems Skin: No problems Vital Signs - Temperature Temperature: 97.0 F Temperature Source: Temporal Artery Scan - Pulse Right Brachial Pulse Rate: 105 Pulse Assessment Method: Automatic Cuff - Respirations Respiratory Rate: 16 Oxygen Delivery Method: Room Air O2 Sat by Pulse Oximetry: 99 - Blood Pressure Right Arm Blood Pressure: 153/80 Blood Pressure Mean: 104 Blood Pressure Source: Automatic Cuff Medical Screen Scoring (Pre) - Cervical Exam Dilation: Exam Deferred Effacement: Exam Deferred Membranes: Intact - Uterine Contractions Frequency: N/A Duration: N/A Intensity: N/A - Maternal Vital Signs Maternal Temperature: N/A Maternal Blood Pressure: N/A Signs of Preeclampsia: N/A Maternal Respirations: N/A - Maternal Trauma Maternal Trauma: N/A - Assessment - Baby A Baseline FHR: 145 Heart Rate - NICHD Category: Category I (Normal) = 0 NST: Reactive Position: N/A Station: N/A - Total Score - Baby A Total Score - Baby A: 0 - Total Score - Baby B Total Score - Baby B: 0 - Total Score - Baby C Total Score - Baby C: 0 - Level of Risk - Baby A Level of Risk - Baby A: Low (0-5) - Level of Risk - Baby B Level of Risk - Baby B: Low (0-5) - Level of Risk - Baby C Level of Risk - Baby C: Low (0-5) Physician Notification (Pre) - Physician Notified Physician Notified Date: 06/26/20 Physician Notified Time: 21:48 New Order Received: Yes - Notification Comment Comment: RN spoke with Dr. Salazar shawnaanna patient. RN relayed that patient states she. has been having constant bilateral lower pelvic pain since noon today. Patient describes. the pain as a 7/10. She tried to rest and elevate her feet but it did not help. Upon. evaluation her blood pressure was elevated. She states her pressure has been elevated at times throughout her . Dr. Salazar was able to look at her visits and her blood pressures were all recorded as within normal limits. RN to try a warm blanket to pelvic area and PIH labs are going to be drawn. Labs were normal, urinalysis was normal. Patient given documents about pre-eclampsia and preeclampsia was discussed at length with patient by RN and Disposition - Disposition OB Disposition: Discharge to home Discharge Date: 06/27/20 Discharge Time: 00:35 I agree with the RN Medical Screening Exam: Yes Risk & Benefit of care provided described in d/c instruction: Yes Diagnosis: GESTATIONAL HTN W/O SIGNIFICANT PROTEINURIA, THIRD TRIMESTER
--- NOTE | 2020-07-20 19:01 | P.MSEPDOC ---
Presenting Problems - Arrival Data Date of Arrival on Unit: 06/26/20 Time of Arrival on Unit: 21:20 Mode of Transport: Wheelchair - Complaint OB-Reason for Admission/Chief Complaint: Pain Comment: Patient presents to triage with cramping that started around 1200pm this. afternoon, states the cramping is constant in nature, denies leaking of fluid or vaginal. bleeding. Patient states she has an ovarian cyst and states the pain sort of feels like. that, but she is unsure. Patient up to the bathroom at this time. Medical History - Information : 1 Para: 0 Term: 0 : 0 Abortions: Spontaneous or Elective: 0 Number of Living Children: 0 - Gestational Age Gestational Age by CHELSEA (wks/days): 31 Weeks and 2 Days - History Complications: GDM Review of Systems - Review of Systems Constitutional: No problems Breast: No problems ENT: No problems Cardiovascular: No problems Respiratory: No problems Gastrointestinal: No problems Genitourinary: No problems Musculoskeletal: No problems Neurological: No problems Skin: No problems Vital Signs - Temperature Temperature: 97.0 F Temperature Source: Temporal Artery Scan - Pulse Right Brachial Pulse Rate: 105 Pulse Assessment Method: Automatic Cuff - Respirations Respiratory Rate: 16 Oxygen Delivery Method: Room Air O2 Sat by Pulse Oximetry: 99 - Blood Pressure Right Arm Blood Pressure: 153/80 Blood Pressure Mean: 104 Blood Pressure Source: Automatic Cuff Medical Screen Scoring (Pre) - Cervical Exam Dilation: Exam Deferred Effacement: Exam Deferred Membranes: Intact - Uterine Contractions Frequency: N/A Duration: N/A Intensity: N/A - Maternal Vital Signs Maternal Temperature: N/A Maternal Blood Pressure: N/A Signs of Preeclampsia: N/A Maternal Respirations: N/A - Maternal Trauma Maternal Trauma: N/A - Assessment - Baby A Baseline FHR: 145 Heart Rate - NICHD Category: Category I (Normal) = 0 NST: Reactive Position: N/A Station: N/A - Total Score - Baby A Total Score - Baby A: 0 - Total Score - Baby B Total Score - Baby B: 0 - Total Score - Baby C Total Score - Baby C: 0 - Level of Risk - Baby A Level of Risk - Baby A: Low (0-5) - Level of Risk - Baby B Level of Risk - Baby B: Low (0-5) - Level of Risk - Baby C Level of Risk - Baby C: Low (0-5) Physician Notification (Pre) - Physician Notified Physician Notified Date: 06/26/20 Physician Notified Time: 21:48 New Order Received: Yes - Notification Comment Comment: RN spoke with Dr. Marie blanco patient. RN relayed that patient states she. has been having constant bilateral lower pelvic pain since noon today. Patient describes. the pain as a 7/10. She tried to rest and elevate her feet but it did not help. Upon. evaluation her blood pressure was elevated. She states her pressure has been elevated at times throughout her . Dr. Salazar was able to look at her visits and her blood pressures were all recorded as within normal limits. RN to try a warm blanket to pelvic area and PIH labs are going to be drawn. Labs were normal, urinalysis was normal. Patient given documents about pre-eclampsia and preeclampsia was discussed at length with patient by RN and Disposition - Disposition OB Disposition: Discharge to home Discharge Date: 06/27/20 Discharge Time: 00:35 I agree with the RN Medical Screening Exam: Yes Case reviewed; plan agreed upon as documented in EMR&OBIX.: Yes Diagnosis: FALSE LABOR BEFORE 37 COMPLETED WEEKS OF GEST, SECOND TRI
== END 2020-06-27 00:35 | disposition home or self-care (01) ==
LOC: FBPOP 21:20
PROVIDERS: ATTEND Obstetrics & Gynecology
DX: O16.3 Unspecified maternal hypertension, third trimester (principal); O24.419 Gestational diabetes mellitus in pregnancy, unspecified control; Z3A.31 31 weeks gestation of pregnancy
CPT/HCPCS: 59025; 81001; 82565; 82570; 83615; 84156; 84450; 84460; 84520; 84550; 85025; 99213

== ENCOUNTER → 2020-07-02 | Outpatient (CLI) | payer MEDICAID ==
[2020-07-02 15:48] LABS: ALT 21 U/L (8-44); AST 21 U/L (13-35)
== END | disposition home or self-care (01) ==
LOC: LABWHC1 10:40
PROVIDERS: ATTEND Obstetrics & Gynecology
DX: O99.891 Other specified diseases and conditions complicating pregnancy (principal); K71.0 Toxic liver disease with cholestasis
CPT/HCPCS: 36415; 82239; 84450; 84460

== ENCOUNTER 2020-07-30 14:18 | Observation (INO) | payer MEDICAID, OTHER ==
[2020-07-30 14:34] LABS: Glucose,Whole Blood 97 mg/dL (75-99)
[2020-07-30 14:56] LABS: Appearance,Urine Cloudy (Clear); Bacteria,Urine Many /hpf; Bilirubin,Urine Negative (Negative); Blood,Urine Negative (Negative); Color,Urine Yellow; Glucose,Urine (UA) 1+ (Negative); Ketones,Urine Negative (Negative); Leukocyte Esterase,Urine Negative (Negative); Mucus,Urine Few /hpf; Nitrite,Urine Negative (Negative); Protein,Urine 3+ (Negative); Specific Gravity,Urine 1.022 (1.001-1.035); Squamous Epithelial Cell,Urine 6 /hpf (0-4); Urobilinogen,Urine <2.0 mg/dL (<2.0); WBC,Urine 13 /hpf (0-5)
[2020-07-30 14:59] LABS: Creatinine,Urine Random 132.8 mg/dL
[2020-07-30 15:09] LABS: Protein/Creatinine Ratio,Urine 3.11
[2020-07-30 15:24] LABS: Basophils % (A) 0 %; Eosinophils % (A) 0 %; HCT 38.5 % (34.0-46.0); HGB 12.6 gm/dL (11.4-16.0); Lymphocytes # (A) 1.6 k/uL (1.0-4.8); Lymphocytes % (A) 15 %; MCH 28.8 pg (25.0-35.0); MCHC 32.8 g/dL (31.0-37.0); MCV 87.8 fL (80.0-100.0); Mean Platelet Volume 10.5; Monocytes # (A) 0.5 k/uL (0-1.0); Monocytes % (A) 5 %; Neutrophils # (A) 8.6 k/uL (1.3-7.7); Neutrophils % (A) 79 %; Platelet Count 201 k/uL (150-450); RBC 4.38 m/uL (3.80-5.40); RDW 15.2 % (11.5-15.5); WBC 10.9 k/uL (3.8-10.6)
[2020-07-30 15:32] LABS: Glucose,Whole Blood 78 mg/dL (75-99)
[2020-07-30 15:41] LABS: ALT 17 U/L (4-34); AST 23 U/L (14-36); African American GFR (CKD) >90 (>60 ml/min/1.73 sqM); Blood Urea Nitrogen 9 mg/dL (7-17); LDH 455 U/L (313-618); Non-African American GFR(CKD) >90 (>60 ml/min/1.73 sqM); Uric Acid 4.4 mg/dL (3.7-7.4)
[2020-07-30 15:43] LABS: INR 0.8 (<1.2); Prothrombin Time 9.3 sec (9.0-12.0)
[2020-07-30 15:49] LABS: Partial Thromboplastin Time 20.9 sec (22.0-30.0)
--- NOTE | 2020-07-30 17:43 | P.HPOB ---
History of Present Illness H&P Date: 07/30/20 Chief Complaint: Gestational hypertension 29-year-old presents at 36 weeks to my office with elevated blood pressures. Blood pressure was 140/90. Center to triage for preeclamptic labs and serial blood pressures as well as an NST. NST is reactive, blood pressures are 130s over 70s to 140s over 90s. Her labs were mostly normal, fibrinogen was elevated at 755 and the PC ratio was 3. She denies any headache, nausea, vision changes, shortness of breath or calf pain. She's having good movement. Right now I know she has gestational hypertension I would like to run a 24-hour urine protein and serial blood pressures. She will stay for observation. Review of Systems All systems: negative Constitutional: Denies chills, Denies fever Eyes: denies blurred vision, denies pain Ears, nose, mouth and throat: Denies headache, Denies sore throat Cardiovascular: Denies chest pain, Denies shortness of breath Respiratory: Denies cough Gastrointestinal: Denies abdominal pain, Denies diarrhea, Denies nausea, Denies vomiting Genitourinary: Denies dysuria, Denies hematuria Musculoskeletal: Denies myalgias Integumentary: Denies pruritus, Denies rash Neurological: Denies numbness, Denies weakness Psychiatric: Denies anxiety, Denies depression Endocrine: Denies fatigue, Denies weight change Past Medical History Past Medical History: No Reported History Additional Past Medical History / Comment(s): Pericarditis; Kidney Stones, fibroid cysts History of Any Multi-Drug Resistant Organisms: None Reported Past Surgical History: No Surgical Hx Reported Smoking Status: Never smoker Medications and Allergies Home Medications Medication Instructions Recorded Confirmed Type Pnv,Calcium 72/Iron/Folic Acid 1 tab PO DAILY 05/03/20 07/30/20 History [ Plus Tablet] Allergies Allergy/AdvReac Type Severity Reaction Status Date / Time No Known Allergies Allergy Verified 07/30/20 14:27 Exam Osteopathic Statement: *. No significant issues noted on an osteopathic structural exam other than those noted in the History and Physical/Consult. Intake and Output 07/30/20 07/30/20 07/30/20 06:59 14:59 22:59 Other: Weight 114.305 kg Heart: Regular rate and rhythm Lungs: Clear to auscultation bilaterally Abdomen: Soft, nontender Extremities: Negative Homans sign Results Result Diagrams: 07/30/20 14:54 07/30/20 14:54 Abnormal Lab Results - Last 24 Hours (Table) 07/30/20 07/30/20 07/30/20 Range/Units 14:30 14:54 14:54 WBC 10.9 H (3.8-10.6) k/uL Neutrophils # 8.6 H (1.3-7.7) k/uL APTT (22.0-30.0) sec Fibrinogen (200-500) mg/dL Creatinine 0.50 L (0.52-1.04) mg/dL Urine Appearance Cloudy H (Clear) Urine Protein 3+ H (Negative) Urine Glucose (UA) 1+ H (Negative) Urine WBC 13 H (0-5) /hpf Ur Squamous Epith Cells 6 H (0-4) /hpf Urine Bacteria Many H (None) /hpf Urine Mucus Few H (None) /hpf 07/30/20 Range/Units 14:54 WBC (3.8-10.6) k/uL Neutrophils # (1.3-7.7) k/uL APTT 20.9 L (22.0-30.0) sec Fibrinogen 723 H (200-500) mg/dL Creatinine (0.52-1.04) mg/dL Urine Appearance (Clear) Urine Protein (Negative) Urine Glucose (UA) (Negative) Urine WBC (0-5) /hpf Ur Squamous Epith Cells (0-4) /hpf Urine Bacteria (None) /hpf Urine Mucus (None) /hpf Assessment and Plan (1) Gestational hypertension Current Visit: Yes Status: Acute Code(s): O13.9 - GESTATIONAL HTN W/O SIGNIFICANT PROTEINURIA, UNSP TRIMESTER SNOMED Code(s): 052036912 (2) Gestational diabetes Current Visit: Yes Status: Acute Code(s): O24.419 - GESTATIONAL DIABETES MELLITUS IN , UNSP CONTROL SNOMED Code(s): 99037306 (3) 36 weeks gestation of Current Visit: Yes Status: Acute Code(s): Z3A.36 - 36 WEEKS GESTATION OF SNOMED Code(s): 75049148 Plan: 1. Admit for observation 2. Blood pressures every 4 hours while awake 3. 24 urine protein 4. Monitor blood sugars
[2020-07-30 20:20] LABS: Glucose,Whole Blood 144 mg/dL (75-99)
--- NOTE | 2020-07-31 05:47 | P.PN ---
Progress Note - Text Progress Note Date: 07/31/20 Patient is seen and complains of occasional abdominal pain more in her upper abdomen. She stated it lasted about 10 minutes but has gone away. She denies any headaches or blurry vision. She is doing a 24-hour urine collection today. Abdomen is soft and nontender currently. Impression is at 36 weeks, gestational hypertension, gestational diabetes. Plan is to complete 24 hour urine collection today. She is advised to let her nurse know if she does start to have the abdominal pain again and we will put her on the monitor to make sure she is not having labor contractions. She did have an elevated blood sugar after dinner of 140. We'll continue to monitor sugars. She is advised that if her blood pressures are not severe, the plan will be to discharge her home after her 24-hour urine collection is completed and she will follow-up with Dr. Wong in the office to discuss probable induction after 37 weeks.
[2020-07-31 05:58] LABS: Basophils % (A) 0 %; Eosinophils # (A) 0.1 k/uL (0-0.7); Eosinophils % (A) 1 %; HCT 37.7 % (34.0-46.0); HGB 12.3 gm/dL (11.4-16.0); Lymphocytes % (A) 21 %; MCH 28.9 pg (25.0-35.0); MCHC 32.7 g/dL (31.0-37.0); MCV 88.2 fL (80.0-100.0); Mean Platelet Volume 11.7; Monocytes # (A) 0.5 k/uL (0-1.0); Monocytes % (A) 6 %; Neutrophils # (A) 6.8 k/uL (1.3-7.7); Neutrophils % (A) 71 %; Platelet Count 177 k/uL (150-450); RBC 4.27 m/uL (3.80-5.40); RDW 15.1 % (11.5-15.5); WBC 9.6 k/uL (3.8-10.6)
[2020-07-31 06:05] LABS: ALT 17 U/L (4-34); AST 24 U/L (14-36); African American GFR (CKD) >90 (>60 ml/min/1.73 sqM); Blood Urea Nitrogen 6 mg/dL (7-17); INR 0.8 (<1.2); LDH 393 U/L (313-618); Non-African American GFR(CKD) >90 (>60 ml/min/1.73 sqM); Prothrombin Time 9.3 sec (9.0-12.0); Uric Acid 4.9 mg/dL (3.7-7.4)
[2020-07-31 06:13] LABS: Partial Thromboplastin Time 21.4 sec (22.0-30.0)
[2020-07-31 06:20] LABS: Glucose,Whole Blood 103 mg/dL (75-99)
[2020-07-31 10:36] LABS: Glucose,Whole Blood 219 mg/dL (75-99)
[2020-07-31 11:07] VITALS: RESP 14
[2020-07-31 12:17] LABS: Glucose,Whole Blood 135 mg/dL (75-99)
[2020-07-31 16:50] LABS: Total Volume 24 Hour,Urine 2400 mls (800-1800)
[2020-07-31 16:59] LABS: Total Protein 24 Hour,Urine 1224 mg/24hr (42.0-225.0)
[2020-07-31 17:12] LABS: Glucose,Whole Blood 130 mg/dL (75-99)
[2020-07-31 17:29] VITALS: BP 117/61; PULSE 97; TEMP 98.1
--- NOTE | 2020-08-01 08:35 | P.DS ---
Providers Date of admission: 07/30/20 17:28 Expected date of discharge: 07/31/20 Attending physician: Mary Jo Wong Primary care physician: Stated None Hospital Course: This is a 29 y.o. female 1, para 0, at 36-1/[address] Wong for serial BPs and 24 hour urine collection due to elevated BPs in the office. Her initial BPs were 140s/90s, but lowered to 110s/60s during her observation. She denied and headaches, blurred vision or epigastric pain. She did have some elevated blood sugars, but was given pancakes and syrup for her breakfast. She was counselled on diabetic diet by nursing staff. 24 hour urine collection did have 1224 mg protein. Patient Condition at Discharge: Stable Plan - Discharge Summary New Discharge Prescriptions: No Action Pnv,Calcium 72/Iron/Folic Acid [ Plus Tablet] 1 tab PO DAILY Discharge Medication List Pnv,Calcium 72/Iron/Folic Acid [ Plus Tablet] 1 tab PO DAILY 05/03/20 [History] Follow up Appointment(s)/Referral(s): Mary Jo Wong DO [Doctor of Osteopathic Medicine] - 1-2 Days Activity/Diet/Wound Care/Special Instructions: Patient instructed to follow up with Dr. Wong on Mon. or . so that she can be scheduled for induction after 37 weeks due to her diagnosis of preeclampsia without severe features. She was advised to return to the hospital for any decreased movement, headaches, blurred vision, epigastric pain or any other concerns. She is advised that she will need twice weekly NSTs and blood pressure checks in the office up until her induction. Discharge Disposition: HOME SELF-CARE
== END 2020-07-31 18:27 | disposition home or self-care (01) ==
LOC: FBPOP 14:18 → 4FBP 17:28
PROVIDERS: ADMIT Obstetrics & Gynecology; ATTEND Obstetrics & Gynecology
DX: O14.93 Unspecified pre-eclampsia, third trimester (principal); O24.419 Gestational diabetes mellitus in pregnancy, unspecified control; O26.899 Other specified pregnancy related conditions, unspecified trimester; R10.9 Unspecified abdominal pain; Z3A.36 36 weeks gestation of pregnancy; Z87.442 Personal history of urinary calculi
CPT/HCPCS: 82570; 84156 ×2; 81050; 82565 ×2; 83615 ×2; 84450 ×2; 84460 ×2; 84520 ×2; 84550 ×2; 85025 ×2; 85384 ×2; 85610 ×2; 85730 ×2; 81001; G0378 ×2

== ENCOUNTER 2020-08-06 05:50 | Inpatient (IN) | payer MEDICAID, OTHER ==
[2020-08-06] MEDS ORDERED: OXYTOCIN 10 UNIT/ML 1 ML VIAL IM PRN (05:59)
[2020-08-06] MEDS ORDERED: METHYLERGONOVINE 0.2 MG/ML 1 ML AMP IM PRN (05:59)
[2020-08-06] MEDS ORDERED: LIDOCAINE 0.5% (PF) 5 MG/ML (50 ML SDV) SQ PRN (05:59)
[2020-08-06] MEDS ORDERED: TERBUTALINE 1 MG/ML VIAL SQ PRN (05:59)
[2020-08-06] MEDS ORDERED: CARBOPROST TROMETHAMINE 250 MCG/ML 1 ML AMP IM PRN (05:59)
[2020-08-06] MEDS ORDERED: OXYTOCIN 30 UNITS/500 ML NS 30 UNIT in SALINE 1 500ML.BAG IV SCH ×2 (06:00→21:00)
[2020-08-06] MEDS ORDERED: LACTATED RINGERS 1,000 ML IV SCH (06:00)
[2020-08-06 06:09] VITALS: RESP 16
[2020-08-06 06:22] LABS: Glucose,Whole Blood 87 mg/dL (75-99)
[2020-08-06 06:42] LABS: Basophils % (A) 0 %; Eosinophils # (A) 0.2 k/uL (0-0.7); Eosinophils % (A) 2 %; HCT 37.4 % (34.0-46.0); HGB 12.2 gm/dL (11.4-16.0); Lymphocytes # (A) 2.5 k/uL (1.0-4.8); Lymphocytes % (A) 22 %; MCH 28.8 pg (25.0-35.0); MCHC 32.7 g/dL (31.0-37.0); MCV 88.1 fL (80.0-100.0); Mean Platelet Volume 10.3; Monocytes # (A) 0.6 k/uL (0-1.0); Monocytes % (A) 5 %; Neutrophils % (A) 70 %; Platelet Count 180 k/uL (150-450); RBC 4.25 m/uL (3.80-5.40); RDW 15.3 % (11.5-15.5); WBC 11.4 k/uL (3.8-10.6)
[2020-08-06] MEDS ORDERED: AMPICILLIN 2,000 MG in SODIUM CHLORIDE 0.9% 100 ML IVPB STA (07:39)
[2020-08-06] MEDS: LACTATED RINGERS 1,000 ML IV SCH ×2 (07:53→13:03)
[2020-08-06] MEDS ORDERED: BUTORPHANOL 1 MG/ML 1 ML VIAL IV PRN (11:12)
[2020-08-06] MEDS: AMPICILLIN 1,000 MG in SODIUM CHLORIDE 0.9% 50 ML IVPB SCH ×3 (11:47→22:53)
--- NOTE | 2020-08-06 12:48 | P.HPOB ---
History of Present Illness H&P Date: 08/06/20 Chief Complaint: Mild preeclampsia 29-year-old presents at 37 weeks and 1 day for induction of labor. Her cervix is 1-2 cm dilated, 80% effaced, -2 station. She is yi irregularly. heart tones are 1:30 with moderate variability and reactive. She has had a few high blood pressures in my office and in triage. Her 24 urine protein showed 1.2 g. She denies headache, nausea, vomiting, chest pain, shortness of breath or any vision changes. Review of Systems All systems: negative Constitutional: Denies chills, Denies fever Eyes: denies blurred vision, denies pain Ears, nose, mouth and throat: Denies headache, Denies sore throat Cardiovascular: Denies chest pain, Denies shortness of breath Respiratory: Denies cough Gastrointestinal: Denies abdominal pain, Denies diarrhea, Denies nausea, Denies vomiting Genitourinary: Denies dysuria, Denies hematuria Musculoskeletal: Denies myalgias Integumentary: Denies pruritus, Denies rash Neurological: Denies numbness, Denies weakness Psychiatric: Denies anxiety, Denies depression Endocrine: Denies fatigue, Denies weight change Past Medical History Past Medical History: No Reported History Additional Past Medical History / Comment(s): Pericarditis; Kidney Stones, fibroid cysts History of Any Multi-Drug Resistant Organisms: None Reported Past Surgical History: No Surgical Hx Reported Past Anesthesia/Blood Transfusion Reactions: No Reported Reaction Past Psychological History: Anxiety, Depression Smoking Status: Never smoker Past Alcohol Use History: None Reported Past Drug Use History: None Reported - Past Family History Mother Family Medical History: No Reported History Medications and Allergies Home Medications Medication Instructions Recorded Confirmed Type Pnv,Calcium 72/Iron/Folic Acid 1 tab PO DAILY 05/03/20 08/06/20 History [ Plus Tablet] Allergies Allergy/AdvReac Type Severity Reaction Status Date / Time No Known Allergies Allergy Verified 08/06/20 05:59 Exam Osteopathic Statement: *. No significant issues noted on an osteopathic structural exam other than those noted in the History and Physical/Consult. Vital Signs Temp Pulse Resp BP Pulse Ox 08/06/20 05:57 97.7 F 130 H 16 124/91 99 Intake and Output 08/05/20 08/06/20 08/06/20 22:59 06:59 14:59 Other: Weight 116.573 kg Heart: Regular rate and rhythm Lungs: Clear to auscultation bilaterally Abdomen: Soft, nontender Extremities: Negative Homans sign Results Result Diagrams: 08/06/20 06:20 Abnormal Lab Results - Last 24 Hours (Table) 08/06/20 Range/Units 06:20 WBC 11.4 H (3.8-10.6) k/uL Neutrophils # 8.0 H (1.3-7.7) k/uL Assessment and Plan (1) Mild preeclampsia Current Visit: Yes Status: Acute Code(s): O14.00 - MILD TO MODERATE PRE- ECLAMPSIA, UNSPECIFIED TRIMESTER SNOMED Code(s): 09971222 Plan: 1. Induction of labor with amniotomy and Pitocin 2. Ampicillin for GBS prophylaxis 3. Anticipate normal vaginal delivery
[2020-08-06] MEDS ORDERED: fentaNYL (PF) 50 MCG/ML 5 ML AMP ONE (13:20)
[2020-08-06] MEDS ORDERED: ROPIVACAINE 5MG/ML 20ML VIAL ONE (13:20)
[2020-08-06] MEDS ORDERED: SODIUM CHLORIDE 0.9% 100 ML BAG ONE (13:20)
[2020-08-06 18:07] LABS: Glucose,Whole Blood 68 mg/dL (75-99)
[2020-08-06] MEDS ORDERED: diphenhydrAMINE 50 MG CAP PO PRN (20:46)
[2020-08-06] MEDS ORDERED: Rhogam IMMUNE GLOBULIN 1,500 UNIT/1 ML IM ONE (20:46)
[2020-08-06] MEDS ORDERED: HYDROCORTISONE 2.5% RECTAL CREAM 30 GM TUBE RECTAL PRN (20:46)
[2020-08-06] MEDS ORDERED: SIMETHICONE 80 MG CHEWABLE PO PRN (20:46)
[2020-08-06] MEDS ORDERED: diphenhydrAMINE 50 MG/ML 1 ML VIAL IVP PRN ×2 (20:46)
[2020-08-06] MEDS ORDERED: diphenhydrAMINE 25 MG CAP PO PRN (20:46)
[2020-08-06] MEDS ORDERED: ACETAMINOPHEN TAB 325 MG TAB PO PRN (20:46)
[2020-08-06] MEDS ORDERED: ZOLPIDEM 5 MG TAB PO PRN (20:46)
[2020-08-06] MEDS ORDERED: LANOLIN CREAM 5 GM TUBE TOPICAL PRN (20:46)
[2020-08-06] MEDS ORDERED: BENZOCAINE/MENTHOL SPRAY 1 GM/SPRAY AEROSOL TOPICAL PRN (20:46)
--- NOTE | 2020-08-06 20:51 | P.PROBDLV ---
Vaginal Delivery Note - . Vaginal Delivery Note: 29-year-old presents at 37 weeks and 1 day for induction of labor. Her cervix is 1-2 cm dilated, 80% effaced, -2 station. She is yi irregularly. heart tones are 130 with moderate variability and reactive. She has had a few high blood pressures in my office and in triage. Her 24 urine protein showed 1.2 g. She denies headache, nausea, vomiting, chest pain, shortness of breath or any vision changes. Pitocin was started. Amniotomy performed at 7:49 AM clear fluid noted. When she was uncomfortable she did get an epidural at 1322 PM. At this point she was 3 cm dilated, 90% effaced, and -2 station. Her cervix was completely dilated at 1814. She pushed the baby to a on the perineum. The patient was complaining of fatigue and requested assistance. I explained the vacuum-assisted vaginal delivery without the risks and benefits, patient agreed to this procedure. Ensure that the bladder was empty and verified position of the head. Placed the vacuum carefully. With one push and no pop offs 's head delivered, the vacuum was removed after pressure was released. anterior shoulder delivered with gentle downward guidance followed by posterior shoulder and rest of body. Nose and mouth bulb suctioned, cord clamped and cut, infant placed on mother's abdomen. Apgars 7, 9, weight 8 lbs. 12 oz. Placenta delivered spontaneously, intact with three- vessel cord at 1945. Vagina, cervix, perineum inspected. Second-degree midline laceration was repaired with 3-0 Vicryl. Estimated blood loss 200 mL. Mother and baby in stable condition.
[2020-08-06] MEDS: LABETALOL 200 MG TAB PO SCH (21:02)
[2020-08-06] MEDS: IBUPROFEN 600 MG TAB PO PRN (22:11)
[2020-08-07] MEDS: IBUPROFEN 600 MG TAB PO PRN ×3 (03:44→15:47)
[2020-08-07 07:48] LABS: Basophils % (A) 0 %; Eosinophils % (A) 0 %; HCT 32.7 % (34.0-46.0); HGB 10.8 gm/dL (11.4-16.0); Lymphocytes # (A) 2.1 k/uL (1.0-4.8); Lymphocytes % (A) 14 %; MCH 28.9 pg (25.0-35.0); MCV 87.5 fL (80.0-100.0); Mean Platelet Volume 10.9; Monocytes # (A) 0.9 k/uL (0-1.0); Monocytes % (A) 7 %; Neutrophils # (A) 11.1 k/uL (1.3-7.7); Neutrophils % (A) 77 %; Platelet Count 164 k/uL (150-450); RBC 3.74 m/uL (3.80-5.40); RDW 15.2 % (11.5-15.5); WBC 14.4 k/uL (3.8-10.6)
[2020-08-07] MEDS: LABETALOL 200 MG TAB PO SCH ×2 (08:02→21:20)
[2020-08-07] MEDS: SENNOSIDES-DOCUSATE SODIUM 1 EACH TAB PO SCH ×2 (08:02→21:57)
--- NOTE | 2020-08-07 09:35 | P.PNOBGVD ---
Subjective - Subjective Principal diagnosis: S/P NVD PPD #1 Interval history: Patient seen and examined. Denies nausea, vomiting, chest pain, shortness of breath or calf pain. Patient reports: Reports appetite normal, Reports voiding normally, Reports pain well controlled, Reports ambulating normally Objective - Latest Vital Signs Latest vital signs: Vital Signs Temp Pulse Resp BP Pulse Ox 08/07/20 08:00 97.7 F 92 16 150/90 98 08/07/20 04:00 98.2 F 90 16 155/93 08/07/20 00:00 98.5 F 115 H 16 115/71 08/06/20 21:50 98.8 F 117 H 16 158/84 08/06/20 21:20 106 H 16 165/84 08/06/20 20:50 106 H 16 172/79 08/06/20 20:35 115 H 16 170/73 08/06/20 20:20 118 H 16 157/72 08/06/20 20:05 121 H 16 156/65 08/06/20 19:50 98.9 F 129 H 16 159/74 Intake and Output 08/06/20 08/07/20 08/07/20 22:59 06:59 14:59 Other: # Voids 1 1 - Exam Lungs: bilateral: normal Chest: Normal S1, Normal S2 Extremities: Present: normal Abdomen: Present: normal appearance, soft Uterus: Present: normal, firm - Labs Labs: Abnormal Lab Results - Last 24 Hours (Table) 08/06/20 08/07/20 Range/Units 18:05 07:15 WBC 14.4 H (3.8-10.6) k/uL RBC 3.74 L (3.80-5.40) m/uL Hgb 10.8 L (11.4-16.0) gm/dL Hct 32.7 L (34.0-46.0) % Neutrophils # 11.1 H (1.3-7.7) k/uL POC Glucose (mg/dL) 68 L (75-99) mg/dL Assessment and Plan (1) Mild preeclampsia Current Visit: Yes Status: Acute Code(s): O14.00 - MILD TO MODERATE PRE- ECLAMPSIA, UNSPECIFIED TRIMESTER SNOMED Code(s): 43068512 (2) Status post normal vaginal delivery Current Visit: Yes Status: Acute Code(s): [id number] - SNOMED Code(s): 021492532 Plan: 1. Patient's blood pressures were more elevated after delivery. I started her on labetalol 200 mg twice a day which is controlling this. 2. Continue care
[2020-08-08] MEDS: IBUPROFEN 600 MG TAB PO PRN ×2 (00:14→08:37)
[2020-08-08 09:19] VITALS: BP 119/72; PULSE 71; TEMP 98.4
[2020-08-08] MEDS: LABETALOL 200 MG TAB PO SCH (09:20)
[2020-08-08] MEDS: SENNOSIDES-DOCUSATE SODIUM 1 EACH TAB PO SCH (09:20)
--- NOTE | 2020-08-08 09:29 | P.DS ---
Providers Date of admission: 08/06/20 05:50 Expected date of discharge: 08/08/20 Attending physician: Mary Jo Wong Primary care physician: Stated None - Discharge Diagnosis(es) (1) Mild preeclampsia Current Visit: Yes Status: Acute (2) Status post normal vaginal delivery Current Visit: Yes Status: Acute Hospital Course: Pt presented for induction of labor due to mild preeclampsia. She underwent a normal vaginal delivery. Post her blood pressures remained 150s over 90s 160s over 90s and I started her on labetalol 200 mg twice a day. day 2 her blood pressures are 120s over 70s. I like to drop her labetalol down to 100 mg twice a day for discharge. When I see her in 1 week to check her blood pressure in the office. She is advised to check her pressures at home as well. All symptoms of preeclampsia were reviewed with the patient. Currently she denies headache, vision changes, right upper quadrant pain, epigastric pain, nausea, vomiting, fever, chills, chest pain or shortness of breath. She will be discharged home day #2 in stable condition to follow-up with me in one week. Plan - Discharge Summary New Discharge Prescriptions: New Ibuprofen [Motrin] 600 mg PO Q6HR PRN #30 tab PRN Reason: Mild Pain Or Fever >= 100.5 Labetalol [Trandate] 100 mg PO BID #60 tablet No Action Pnv,Calcium 72/Iron/Folic Acid [ Plus Tablet] 1 tab PO DAILY Discharge Medication List Pnv,Calcium 72/Iron/Folic Acid [ Plus Tablet] 1 tab PO DAILY 05/03/20 [History] Ibuprofen [Motrin] 600 mg PO Q6HR PRN #30 tab 08/08/20 [Rx] Labetalol [Trandate] 100 mg PO BID #60 tablet 08/08/20 [Rx] Follow up Appointment(s)/Referral(s): Mary Jo Wong DO [Doctor of Osteopathic Medicine] - 1 Week Patient Instructions/Handouts: Vaginal Delivery (DC) Discharge Disposition: HOME SELF-CARE
== END 2020-08-08 12:30 | disposition home or self-care (01) | DRG 807 ==
LOC: 4FBP 05:50
PROVIDERS: ADMIT Obstetrics & Gynecology; ATTEND Obstetrics & Gynecology
PROC: 10907ZC Drainage of Amniotic Fluid, Therapeutic from Products of Conception, Via Natural or Artificial Opening (ICD-10-PCS; principal; 2020-08-06)
PROC: 10D07Z6 Extraction of Products of Conception, Vacuum, Via Natural or Artificial Opening (ICD-10-PCS; principal; 2020-08-06)
PROC: 0KQM0ZZ Repair Perineum Muscle, Open Approach (ICD-10-PCS; principal; 2020-08-06)
PROC: 3E0R3BZ Introduction of Anesthetic Agent into Spinal Canal, Percutaneous Approach (ICD-10-PCS; principal; 2020-08-06)
PROC: 00HU33Z Insertion of Infusion Device into Spinal Canal, Percutaneous Approach (ICD-10-PCS; principal; 2020-08-06)
PROC: 3E033VJ Introduction of Other Hormone into Peripheral Vein, Percutaneous Approach (ICD-10-PCS; principal; 2020-08-06)
PROC: 3E0234Z Introduction of Serum, Toxoid and Vaccine into Muscle, Percutaneous Approach (ICD-10-PCS; 2020-08-06)
DX: O14.04 Mild to moderate pre-eclampsia, complicating childbirth (principal); Z37.0 Single live birth; O26.893 Other specified pregnancy related conditions, third trimester; O70.1 Second degree perineal laceration during delivery; Z67.21 Type B blood, Rh negative; Z3A.37 37 weeks gestation of pregnancy; Z79.899 Other long term (current) drug therapy; Z87.442 Personal history of urinary calculi; Z86.79 Personal history of other diseases of the circulatory system; Z86.59 Personal history of other mental and behavioral disorders
CPT/HCPCS: 85025; 85461; 86850; 86900; 86901; 88307

== ENCOUNTER 2021-05-25 09:07 | Emergency (ER) | payer MEDICAID, OTHER ==
[2021-05-25 09:27] VITALS: RESP 18
[2021-05-25] MEDS ORDERED: IBUPROFEN 600 MG TAB PO STA (10:06)
[2021-05-25] MEDS ORDERED: ACETAMINOPHEN TAB 500 MG TAB PO STA (10:06)
--- NOTE | 2021-05-25 10:34 | ED ---
General Adult HPI - General Chief complaint: Upper Respiratory Infection Stated complaint: Sore throat, body aches Time Seen by Provider: 05/25/21 09:35 Source: patient, RN notes reviewed Mode of arrival: ambulatory Limitations: no limitations - History of Present Illness Initial comments: This a 30-year-old female presents emergency from chief complaint of fever headache bodyaches sore throat. Patient states that her daughter is also sick with rash and fever. She denies any known sick contacts otherwise. Denies any significant shortness breath chest pain patient denies nausea vomiting diarrhea constipation. She is very painful to swallow and had a diffuse headache with body aches. - Related Data Home Medications Medication Instructions Recorded Confirmed No Known Home Medications 05/25/21 05/25/21 Allergies Allergy/AdvReac Type Severity Reaction Status Date / Time No Known Allergies Allergy Verified 05/25/21 10:53 Review of Systems ROS Statement: Those systems with pertinent positive or pertinent negative responses have been documented in the HPI. ROS Other: All systems not noted in ROS Statement are negative. Past Medical History Past Medical History: No Reported History Additional Past Medical History / Comment(s): Pericarditis; Kidney Stones, fibroid cysts History of Any Multi-Drug Resistant Organisms: None Reported Past Surgical History: No Surgical Hx Reported Past Anesthesia/Blood Transfusion Reactions: No Reported Reaction Past Psychological History: Anxiety, Depression Smoking Status: Former smoker Past Alcohol Use History: None Reported Past Drug Use History: None Reported - Past Family History Mother Family Medical History: No Reported History General Exam Limitations: no limitations General appearance: alert, in no apparent distress Head exam: Present: atraumatic, normocephalic, normal inspection Eye exam: Present: normal appearance, PERRL, EOMI. Absent: scleral icterus, conjunctival injection, periorbital swelling ENT exam: Present: mucous membranes moist. Absent: normal exam, normal oropharynx (Erythematous swollen tonsils) Neck exam: Present: normal inspection, full ROM. Absent: tenderness, m eningismus, lymphadenopathy Respiratory exam: Present: normal lung sounds bilaterally. Absent: respiratory distress, wheezes, rales, rhonchi, stridor Cardiovascular Exam: Present: normal rhythm, tachycardia, normal heart sounds. Absent: systolic murmur, diastolic murmur, rubs, gallop, clicks Course Vital Signs 05/25/21 09:22 Temperature 100.5 F H Pulse Rate 113 H Respiratory 18 Rate Blood Pressure 150/93 O2 Sat by Pulse 100 Oximetry Medical Decision Making - Medical Decision Making Patient noted a fever daughter currently has knlw-netl-mio-mouth patient does have erythematous posterior pharynx most likely related to viral infection. Patient will be discharged in stable condition return parameters were discussed. - Lab Data Lab Results 05/25/21 05/25/21 Range/Units 10:16 10:16 Coronavirus (PCR) Not Detected (Not Detectd) Group A Strep Rapid Negative (Negative) Disposition Clinical Impression: Viral infection, Hand, foot and mouth disease Disposition: HOME SELF-CARE Condition: Stable Instructions (If sedation given, give patient instructions): Hand, Foot, and Mouth Disease (ED) Additional Instructions: Please return to the Emergency Department if symptoms worsen or any other concerns. Is patient prescribed a controlled substance at d/c from ED?: No Referrals: Karson Brown MD [Primary Care Provider] - 1-2 days Time of Disposition: 10:57
[2021-05-25 11:16] VITALS: BP 145/90; PULSE 100; TEMP 98.6
== END 2021-05-25 11:16 | disposition home or self-care (01) ==
LOC: EC 09:07
DX: B34.9 Viral infection, unspecified (principal); B08.4 Enteroviral vesicular stomatitis with exanthem; Z20.822 Contact with and (suspected) exposure to COVID-19; Z87.891 Personal history of nicotine dependence
CPT/HCPCS: 87081; 87430; 87635; 99284